=== PATIENT | male | born 1945 | race Caucasian/White ===

== ENCOUNTER 2017-06-12 16:28 | Observation (INO) | payer MEDICARE ==
[~2017-06-12] VITALS: Ht 180.3 cm; Wt 148.9 kg
[~2017-06-12 16:28] MED LIST: ABAT250V; ACCU-CHEK AVIV1 EAC1; ACCU-CHEK AVIV1 EAC2; ACET325; ACET325 PO; ACET500; ALBU90OI INH; ASPI325; ASPI325 PO; ASPI81CH PO; ATOR40TA PO; ATOR80 PO; BRILINTA90 MG PO; CIPR500 PO; CLOP75; CLOP75 PO; COLCRYS PO; CYCL10; CYCL10 PO; DIAZ10 PO; DIAZ5 PO; DOCU100 PO; DULO30 PO; Dilaudid 2 mg Ta2 MG PO; EFFIENT10 MG PO; ENDOCET; ENDOCET PO; FURO20; FURO20 PO; GLIP5ER PO; HYDACE10B PO; HYDACE5325 PO; HYDCHL25 PO; HYDMOR2 PO; HYDMOR4 PO; IBUP200; INDOCIN; ISOD40ER PO; Isosorbide Mono30 MG PO; Isosorbide Mono60 MG PO; KETO10 PO; LEVFLO500 PO; LISI20; LISI20 PO; LISINOPRIL; LOSARTAN POTAS100 MG PO; LOSHYD100 PO; LOVA40; METF500 PO; METF500C PO; METO100 PO; METO100ER PO; METO50; METO50 PO; METO50ER; METO50ER PO; METR500 PO; Metoprolol Tar100 MG; Metoprolol Tar100 MG PO; NEBI10 PO; NITR.4SL SL; NITR.4TPA TOP; NITRSPRAY; NITRSPRAY SL; ONDA4 PO; OXYACE5T; OXYACE5T PO; OXYC1TAB11 PO; PERCOCET 10/325 PO; POLY17UD PO; PRED10; PRED5 PO; PROM25 PO; Prednisone20 MG PO; RANO500T PO; RXCYCL10 PO; RXHYDMOR2 PO; SIMV10 PO; SIMVASTATIN PO; SULTRISS; TAMS.4ER PO; VYTORIN; [UNRECOGNIZED DRUG - OTHER]
[2017-06-12 17:13] LABS: BASOPHILS ABSOLUTE AUTO 0.06 K/mm3 (0.00-0.23); BASOPHILS PERCENT AUTO 0 % (0-2); EOSINOPHILS PERCENT AUTO 1 % (0-6); Hematocrit 39.4 % (37.0-53.0); Hemoglobin 12.7 g/dL (13.5-17.5); IMMATURE GRAN ABSOLUTE AUTO 0.19 K/mm3 (0.00-0.10); IMMATURE GRAN PERCENT AUTO 1 % (0-1); LYMPHOCYTES ABSOLUTE AUTO 2.35 K/mm3 (0.84-5.20); LYMPHOCYTES PERCENT AUTO 16 % (21-46); MONOCYTES ABSOLUTE AUTO 0.84 K/mm3 (0.16-1.47); MONOCYTES PERCENT AUTO 6 % (4-13); Mean Corpuscular HGB 29.5 pg (26.0-34.0); Mean Corpuscular HGB Conc 32.2 g/dL (31.5-36.5); Mean Corpuscular Volume 92 fL (80-100); Mean Platelet Volume 9.8 fL (9.1-12.4); NEUTROPHILS ABSOLUTE AUTO 11.44 K/mm3 (1.96-9.15); NEUTROPHILS PERCENT AUTO 76 % (41-73); Platelet Count 358 K/mm3 (150-400); RDW Coefficient Variation 14.2 % (11.7-14.2); RDW Standard Deviation 48.3 fL (35.1-46.3); White Blood Cell Count 14.98 K/mm3 (4.00-11.30)
[2017-06-12 17:34] LABS: Alanine Aminotransfer (ALT/SGP 23 U/L (12-78); Albumin, Blood 2.9 g/dL (3.4-5.0); Albumin/Globulin Ratio 0.8 (0.8-1.8); Alk Phos 94 U/L (50-136); Anion Gap 12 mmol/L (6-16); Aspartate Aminotrans (AST/SGOT 18 U/L (12-37); Bilirubin, Total 0.3 mg/dL (0.1-1.0); Blood Urea Nitrogen 23 mg/dL (8-24); Bun/Creatinine Ratio 18.7 (12.0-20.0); CO2, Blood 22 mmol/L (21-32); Calcium, Blood 8.6 mg/dL (8.5-10.1); Chloride, Blood 99 mmol/L (98-108); Creatinine, Blood 1.23 mg/dL (0.60-1.20); Globulin, Blood 3.7 g/dL (2.2-4.0); Glomerular Filtration Rate >60 (60-); Glucose, Blood 453 mg/dL (70-99); Potassium, Blood 4.3 mmol/L (3.5-5.5); Sodium, Blood 133 mmol/L (136-145); Total Protein, Blood 6.6 g/dL (6.4-8.2); Troponin I <0.015 ng/mL (0.000-0.040)
[2017-06-13 00:45] LABS: Source, Urine Voided
[2017-06-13 00:53] LABS: Bilirubin, Urine Neg (Neg); Blood, Urine Neg (Neg); Glucose Qualitative, Urine 4+ (Neg); Ketones, Urine Neg (Neg); Leukocyte Esterase, Urine Neg (Neg); Nitrite, Urine Neg (Neg); Protein, Urine Neg (Neg); Urobilinogen, Urine NORM (Normal)
[2017-06-13 00:56] LABS: Appearance, Urine Clear (Clear); Color, Urine Yellow (P-Yellow)
[2017-06-15] MEDS ORDERED: TRAM50 PO (14:37)
[2017-06-15] MEDS ORDERED: ATOR80 PO (14:39)
[2017-06-15] MEDS ORDERED: NITR.6SL SL (14:39)
[2017-06-15] MEDS ORDERED: CARV25 PO (14:41)
[2017-06-15] MEDS ORDERED: HYDCHL25 PO (14:42)
[2017-06-15] MEDS ORDERED: LIDO700A20 TOP (14:43)
[2017-06-15] MEDS ORDERED: PANT40 PO (14:46)
[2017-06-15] MEDS ORDERED: TORSE20 PO (14:47)
[2017-06-15] MEDS ORDERED: LOSA50 PO (15:09)
[2017-07-23] MEDS ORDERED: Isosorbide Mono60 MG PO (15:07)
[2017-07-23] MEDS ORDERED: SITA50T2 PO (15:07)
[2017-07-23] MEDS ORDERED: NITR.8TP TOP (15:07)
[2017-12-06] MEDS ORDERED: Percocet 10-321 EACH PO (08:49)
== END 2017-06-15 16:13 | disposition home or self-care (01) ==
LOC: ER 16:28 → MEDS 16:29 → ENPENDDIS 06-15 12:22 → MEDS 06-15 16:13
PROVIDERS: Emergency Medicine; Internal Medicine
DX: R07.89 Other chest pain (principal); I25.10 Atherosclerotic heart disease of native coronary artery without angina pectoris; G47.33 Obstructive sleep apnea (adult) (pediatric); E78.5 Hyperlipidemia, unspecified; E11.22 Type 2 diabetes mellitus with diabetic chronic kidney disease; I13.10 Hypertensive heart and chronic kidney disease without heart failure, with stage 1 through stage 4 chronic kidney disease, or unspecified chronic kidney disease; N18.3 Chronic kidney disease, stage 3 (moderate); M19.90 Unspecified osteoarthritis, unspecified site; E66.01 Morbid (severe) obesity due to excess calories; M25.571 Pain in right ankle and joints of right foot; M54.9 Dorsalgia, unspecified; M25.551 Pain in right hip; I25.9 Chronic ischemic heart disease, unspecified; Z88.8 Allergy status to other drugs, medicaments and biological substances; Z95.1 Presence of aortocoronary bypass graft; Z99.89 Dependence on other enabling machines and devices; Z85.46 Personal history of malignant neoplasm of prostate; Z88.5 Allergy status to narcotic agent; Z88.7 Allergy status to serum and vaccine; Z91.041 Radiographic dye allergy status; Z88.6 Allergy status to analgesic agent; Z79.899 Other long term (current) drug therapy; Z79.84 Long term (current) use of oral hypoglycemic drugs; Z79.02 Long term (current) use of antithrombotics/antiplatelets; Z79.82 Long term (current) use of aspirin; Z87.442 Personal history of urinary calculi; Z98.890 Other specified postprocedural states; Z87.891 Personal history of nicotine dependence; Z85.51 Personal history of malignant neoplasm of bladder; Z95.5 Presence of coronary angioplasty implant and graft; Z79.01 Long term (current) use of anticoagulants; Z68.42 Body mass index [BMI] 45.0-49.9, adult
CPT/HCPCS: 36415; 71046; 78452; 80053; 81003; 82947; 83880; 84484; 85025; 85730; 93005; 93010; 93017; 94762; 96372; 96374; 96375; 96376; 99285; A9500; G0378; J0280; J0360; J1170; J1650; J2785; J3010

== ENCOUNTER 2017-08-05 02:47 | Observation (INO) | payer MEDICARE ==
[~2017-08-05] VITALS: Ht 180.3 cm; Wt 149.4 kg
[~2017-08-05 02:47] MED LIST changes: +CARV25 PO; +LIDO700A20 TOP; +LOSA50 PO; +NITR.6SL SL; +NITR.8TP TOP; +PANT40 PO; +SITA50T2 PO; +TORSE20 PO; +TRAM50 PO
[2017-08-05 03:10] LABS: BASOPHILS ABSOLUTE AUTO 0.08 K/mm3 (0.00-0.23); BASOPHILS PERCENT AUTO 1 % (0-2); EOSINOPHILS ABSOLUTE AUTO 1.27 K/mm3 (0.00-0.68); EOSINOPHILS PERCENT AUTO 10 % (0-6); Hematocrit 37.5 % (37.0-53.0); Hemoglobin 12.3 g/dL (13.5-17.5); IMMATURE GRAN ABSOLUTE AUTO 0.08 K/mm3 (0.00-0.10); IMMATURE GRAN PERCENT AUTO 1 % (0-1); LYMPHOCYTES ABSOLUTE AUTO 2.37 K/mm3 (0.84-5.20); LYMPHOCYTES PERCENT AUTO 19 % (21-46); MONOCYTES ABSOLUTE AUTO 0.91 K/mm3 (0.16-1.47); MONOCYTES PERCENT AUTO 7 % (4-13); Mean Corpuscular HGB 29.9 pg (26.0-34.0); Mean Corpuscular HGB Conc 32.8 g/dL (31.5-36.5); Mean Corpuscular Volume 91 fL (80-100); Mean Platelet Volume 9.4 fL (9.1-12.4); NEUTROPHILS ABSOLUTE AUTO 8.05 K/mm3 (1.96-9.15); NEUTROPHILS PERCENT AUTO 63 % (41-73); Platelet Count 330 K/mm3 (150-400); RDW Coefficient Variation 13.5 % (11.7-14.2); RDW Standard Deviation 45.1 fL (35.1-46.3); Red Blood Cell Count 4.11 M/mm3 (4.30-5.90); White Blood Cell Count 12.76 K/mm3 (4.00-11.30)
[2017-08-05 03:29] LABS: Alanine Aminotransfer (ALT/SGP 15 U/L (12-78); Albumin/Globulin Ratio 0.9 (0.8-1.8); Alk Phos 86 U/L (50-136); Anion Gap 7 mmol/L (6-16); Aspartate Aminotrans (AST/SGOT 13 U/L (12-37); Bilirubin, Total 0.3 mg/dL (0.1-1.0); Blood Urea Nitrogen 15 mg/dL (8-24); Bun/Creatinine Ratio 10.2 (12.0-20.0); CO2, Blood 27 mmol/L (21-32); Calcium, Blood 8.4 mg/dL (8.5-10.1); Chloride, Blood 105 mmol/L (98-108); Creatinine, Blood 1.47 mg/dL (0.60-1.20); Globulin, Blood 3.5 g/dL (2.2-4.0); Glomerular Filtration Rate 50 (60-); Glucose, Blood 158 mg/dL (70-99); Potassium, Blood 3.9 mmol/L (3.5-5.5); Sodium, Blood 139 mmol/L (136-145); Total Protein, Blood 6.5 g/dL (6.4-8.2); Troponin I <0.015 ng/mL (0.000-0.040)
[2017-08-05] MEDS ORDERED: LOSA50 PO (03:38)
[2017-08-05 15:26] LABS: International Normalized Ratio 1.09; Prothrombin Time Results 11.4 Sec (9.7-11.5)
== END 2017-08-06 15:55 | disposition home or self-care (01) ==
LOC: ER 02:47 → MEDS 04:06 → ICUW 05:10 → PCU 08-06 06:30 → ICUW 08-06 09:20
PROVIDERS: Emergency Medicine; Internal Medicine Cardiovascular Disease
DX: I25.110 Atherosclerotic heart disease of native coronary artery with unstable angina pectoris (principal); E11.22 Type 2 diabetes mellitus with diabetic chronic kidney disease; I12.9 Hypertensive chronic kidney disease with stage 1 through stage 4 chronic kidney disease, or unspecified chronic kidney disease; N18.3 Chronic kidney disease, stage 3 (moderate); M54.5 Low back pain; G89.29 Other chronic pain; I25.2 Old myocardial infarction; E78.5 Hyperlipidemia, unspecified; E66.01 Morbid (severe) obesity due to excess calories; Z68.42 Body mass index [BMI] 45.0-49.9, adult; Z95.5 Presence of coronary angioplasty implant and graft; Z87.891 Personal history of nicotine dependence; Z79.82 Long term (current) use of aspirin; Z79.02 Long term (current) use of antithrombotics/antiplatelets; Z79.899 Other long term (current) drug therapy; Z88.5 Allergy status to narcotic agent; Z88.6 Allergy status to analgesic agent; Z88.8 Allergy status to other drugs, medicaments and biological substances; Z91.041 Radiographic dye allergy status
CPT/HCPCS: 36415; 71046; 80053; 82947; 84484; 85025; 85347; 85610; 85730; 86850; 86900; 86901; 93005; 93010; 93455; 96374; 96375; 96376; 99152; 99153; 99285; C1769; C1894; G0378; J0360; J1200; J1644; J1720; J2250; J3010; J3490; J7030; Q9967

== ENCOUNTER 2017-11-03 13:45 | Observation (INO) | payer MEDICARE ==
[~2017-11-03] VITALS: Ht 180.3 cm; Wt 149.6 kg
[2017-11-03 14:12] LABS: BASOPHILS PERCENT AUTO 1 % (0-2); EOSINOPHILS ABSOLUTE AUTO 0.87 K/mm3 (0.00-0.68); EOSINOPHILS PERCENT AUTO 7 % (0-6); Hemoglobin 13.2 g/dL (13.5-17.5); IMMATURE GRAN ABSOLUTE AUTO 0.05 K/mm3 (0.00-0.10); IMMATURE GRAN PERCENT AUTO 0 % (0-1); LYMPHOCYTES ABSOLUTE AUTO 2.33 K/mm3 (0.84-5.20); LYMPHOCYTES PERCENT AUTO 19 % (21-46); MONOCYTES ABSOLUTE AUTO 0.78 K/mm3 (0.16-1.47); MONOCYTES PERCENT AUTO 6 % (4-13); Mean Corpuscular HGB 27.5 pg (26.0-34.0); Mean Corpuscular HGB Conc 31.4 g/dL (31.5-36.5); Mean Corpuscular Volume 88 fL (80-100); Mean Platelet Volume 9.6 fL (9.1-12.4); NEUTROPHILS ABSOLUTE AUTO 8.46 K/mm3 (1.96-9.15); NEUTROPHILS PERCENT AUTO 67 % (41-73); Platelet Count 361 K/mm3 (150-400); RDW Coefficient Variation 13.4 % (11.7-14.2); RDW Standard Deviation 43.5 fL (35.1-46.3); White Blood Cell Count 12.59 K/mm3 (4.00-11.30)
[2017-11-03] MEDS ORDERED: FURO20 PO (14:33)
[2017-11-03] MEDS ORDERED: POTCHL10ER PO (14:33)
[2017-11-03] MEDS ORDERED: NITR.8TP (14:34)
[2017-11-03 14:41] LABS: Alanine Aminotransfer (ALT/SGP 18 U/L (12-78); Albumin/Globulin Ratio 0.8 (0.8-1.8); Alk Phos 114 U/L (50-136); Anion Gap 8 mmol/L (6-16); Aspartate Aminotrans (AST/SGOT 16 U/L (12-37); Bilirubin, Total 0.3 mg/dL (0.1-1.0); Blood Urea Nitrogen 14 mg/dL (8-24); Bun/Creatinine Ratio 9.4 (12.0-20.0); CO2, Blood 25 mmol/L (21-32); Chloride, Blood 100 mmol/L (98-108); Creatinine, Blood 1.49 mg/dL (0.60-1.20); Globulin, Blood 3.8 g/dL (2.2-4.0); Glomerular Filtration Rate 49 (60-); Glucose, Blood 447 mg/dL (70-99); Potassium, Blood 3.8 mmol/L (3.5-5.5); Sodium, Blood 133 mmol/L (136-145); Total Protein, Blood 6.8 g/dL (6.4-8.2); Troponin I <0.015 ng/mL (0.000-0.040)
[2017-11-03] MEDS ORDERED: ZYRTEC10 M1 PO (14:44)
[2017-11-03] MEDS ORDERED: Monodox100 MG PO (14:44)
[2017-11-03] MEDS ORDERED: Mupirocin22 GM TOP (14:44)
== END 2017-11-04 03:00 | disposition left against medical advice (07) ==
LOC: ER 13:45 → MEDS 13:48 → ER 15:47 → MEDS 15:47
PROVIDERS: Emergency Medicine
DX: R07.9 Chest pain, unspecified (principal); I25.10 Atherosclerotic heart disease of native coronary artery without angina pectoris; E78.5 Hyperlipidemia, unspecified; E11.22 Type 2 diabetes mellitus with diabetic chronic kidney disease; I12.9 Hypertensive chronic kidney disease with stage 1 through stage 4 chronic kidney disease, or unspecified chronic kidney disease; N18.3 Chronic kidney disease, stage 3 (moderate); E66.01 Morbid (severe) obesity due to excess calories; G47.33 Obstructive sleep apnea (adult) (pediatric); Z87.891 Personal history of nicotine dependence; Z95.1 Presence of aortocoronary bypass graft; Z95.5 Presence of coronary angioplasty implant and graft; Z88.5 Allergy status to narcotic agent; Z88.8 Allergy status to other drugs, medicaments and biological substances; Z88.7 Allergy status to serum and vaccine; Z91.041 Radiographic dye allergy status; Z79.02 Long term (current) use of antithrombotics/antiplatelets; Z79.84 Long term (current) use of oral hypoglycemic drugs; Z79.82 Long term (current) use of aspirin; Z79.899 Other long term (current) drug therapy; Z99.89 Dependence on other enabling machines and devices; Z79.01 Long term (current) use of anticoagulants
CPT/HCPCS: 36415; 71046; 80053; 82947; 84484; 85025; 93005; 93010; 96360; 99285-25; G0378; J1815; J7030; Q0163

== ENCOUNTER 2018-04-21 11:33 | Emergency (ER) | payer MEDICARE ==
[~2018-04-21] VITALS: Ht 180.3 cm; Wt 142.4 kg
[~2018-04-21 11:33] MED LIST changes: +Monodox100 MG PO; +Mupirocin22 GM TOP; +NITR.8TP; +POTCHL10ER PO; +Percocet 10-321 EACH PO; +ZYRTEC10 M1 PO
[2018-04-21] MEDS ORDERED: Metformin HCl500 MG PO (11:55)
[2018-04-21] MEDS ORDERED: AMLO10 PO (11:55)
[2018-04-21 13:10] LABS: Calcium, Ionized (POC) 1.05 mmol/L (1.10-1.46); Chloride (POC) 99 mmol/L (98-108); Creatinine (POC) 1.1 mg/dL (0.8-1.3); Glucose (ISTAT POC) 188 mg/dL (70-99); Hemoglobin (POC) 13.9 g/dL (13.5-17.5); Potassium (POC) 3.6 mmol/L (3.5-5.5); Sodium (POC) 141 mmol/L (135-148); Total CO2 (POC) 28 mmol/L (21-32)
== END 2018-04-21 14:50 | disposition home or self-care (01) ==
LOC: ER 11:33
PROVIDERS: Physician Assistant
DX: S09.90XA Unspecified injury of head, initial encounter (principal); S20.212A Contusion of left front wall of thorax, initial encounter; S90.32XA Contusion of left foot, initial encounter; I25.10 Atherosclerotic heart disease of native coronary artery without angina pectoris; E11.9 Type 2 diabetes mellitus without complications; I10 Essential (primary) hypertension; E78.5 Hyperlipidemia, unspecified; I25.2 Old myocardial infarction; Z87.442 Personal history of urinary calculi; F17.210 Nicotine dependence, cigarettes, uncomplicated; Z88.5 Allergy status to narcotic agent; Z88.6 Allergy status to analgesic agent; Z88.7 Allergy status to serum and vaccine; Z88.8 Allergy status to other drugs, medicaments and biological substances; Z91.048 Other nonmedicinal substance allergy status; Z79.84 Long term (current) use of oral hypoglycemic drugs; Z79.899 Other long term (current) drug therapy; Z79.82 Long term (current) use of aspirin; W11.XXXA Fall on and from ladder, initial encounter
CPT/HCPCS: 29515; 36415; 70450; 71100; 71250; 73562-RT; 73590; 73630; 74176; 80047; 85014; 93005; 93010; 96374; 99284-25; J1170

== ENCOUNTER 2018-06-03 00:06 | Emergency (ER) | payer MEDICARE ==
[~2018-06-03] VITALS: Ht 177.8 cm; Wt 142.4 kg
[~2018-06-03 00:06] MED LIST changes: +AMLO10 PO; +Metformin HCl500 MG PO
[2018-06-03 00:40] LABS: BASOPHILS ABSOLUTE AUTO 0.08 K/mm3 (0.00-0.23); BASOPHILS PERCENT AUTO 1 % (0-2); EOSINOPHILS ABSOLUTE AUTO 1.27 K/mm3 (0.00-0.68); EOSINOPHILS PERCENT AUTO 11 % (0-6); Hematocrit 43.6 % (37.0-53.0); IMMATURE GRAN ABSOLUTE AUTO 0.08 K/mm3 (0.00-0.10); IMMATURE GRAN PERCENT AUTO 1 % (0-1); LYMPHOCYTES PERCENT AUTO 20 % (21-46); MONOCYTES ABSOLUTE AUTO 0.77 K/mm3 (0.16-1.47); MONOCYTES PERCENT AUTO 7 % (4-13); Mean Corpuscular HGB 29.1 pg (26.0-34.0); Mean Corpuscular HGB Conc 32.1 g/dL (31.5-36.5); Mean Corpuscular Volume 91 fL (80-100); Mean Platelet Volume 9.2 fL (9.1-12.4); NEUTROPHILS ABSOLUTE AUTO 7.21 K/mm3 (1.96-9.15); NEUTROPHILS PERCENT AUTO 61 % (41-73); Platelet Count 383 K/mm3 (150-400); RDW Coefficient Variation 14.3 % (11.7-14.2); RDW Standard Deviation 47.9 fL (35.1-46.3); Red Blood Cell Count 4.81 M/mm3 (4.30-5.90); White Blood Cell Count 11.81 K/mm3 (4.00-11.30)
[2018-06-03] MEDS ORDERED: INSDET100 (00:41)
[2018-06-03 00:57] LABS: Alanine Aminotransfer (ALT/SGP 14 U/L (12-78); Albumin, Blood 3.2 g/dL (3.4-5.0); Albumin/Globulin Ratio 0.8 (0.8-1.8); Alk Phos 134 U/L (50-136); Anion Gap 8 mmol/L (6-16); Aspartate Aminotrans (AST/SGOT 8 U/L (12-37); Bilirubin, Total 0.3 mg/dL (0.1-1.0); Blood Urea Nitrogen 14 mg/dL (8-24); Bun/Creatinine Ratio 12.3 (12.0-20.0); CO2, Blood 27 mmol/L (21-32); Calcium, Blood 8.4 mg/dL (8.5-10.1); Chloride, Blood 102 mmol/L (98-108); Creatinine, Blood 1.14 mg/dL (0.60-1.20); Globulin, Blood 3.9 g/dL (2.2-4.0); Glomerular Filtration Rate >60 (60-); Glucose, Blood 291 mg/dL (70-99); Potassium, Blood 3.9 mmol/L (3.5-5.5); Sodium, Blood 137 mmol/L (136-145); Total Protein, Blood 7.1 g/dL (6.4-8.2); Troponin I <0.015 ng/mL (0.000-0.040)
== END 2018-06-03 01:36 | disposition home or self-care (01) ==
LOC: ER 00:06
PROVIDERS: Emergency Medicine
DX: R07.9 Chest pain, unspecified (principal); Z88.5 Allergy status to narcotic agent; Z88.8 Allergy status to other drugs, medicaments and biological substances; Z88.7 Allergy status to serum and vaccine; Z79.899 Other long term (current) drug therapy; Z79.4 Long term (current) use of insulin; Z79.82 Long term (current) use of aspirin; E11.9 Type 2 diabetes mellitus without complications; F17.210 Nicotine dependence, cigarettes, uncomplicated
CPT/HCPCS: 36415; 71046; 80053; 84484; 85025; 93005; 93010; 99285-25

== ENCOUNTER 2019-03-02 15:41 | Observation (INO) | payer MEDICARE ==
[~2019-03-02] VITALS: Ht 180.3 cm; Wt 142.5 kg
[~2019-03-02 15:41] MED LIST changes: -ASPI81CH PO; +Aspirin EC81 MG PO; +INSDET100 SC
[2019-03-02 16:11] LABS: BASOPHILS PERCENT AUTO 1 % (0-2); EOSINOPHILS ABSOLUTE AUTO 0.88 K/mm3 (0.00-0.68); EOSINOPHILS PERCENT AUTO 7 % (0-6); Hemoglobin 14.1 g/dL (13.5-17.5); IMMATURE GRAN ABSOLUTE AUTO 0.05 K/mm3 (0.00-0.10); IMMATURE GRAN PERCENT AUTO 0 % (0-1); LYMPHOCYTES ABSOLUTE AUTO 2.42 K/mm3 (0.84-5.20); LYMPHOCYTES PERCENT AUTO 19 % (21-46); MONOCYTES ABSOLUTE AUTO 0.92 K/mm3 (0.16-1.47); MONOCYTES PERCENT AUTO 7 % (4-13); Mean Corpuscular HGB 29.4 pg (26.0-34.0); Mean Corpuscular Volume 92 fL (80-100); Mean Platelet Volume 9.4 fL (9.1-12.4); NEUTROPHILS ABSOLUTE AUTO 8.17 K/mm3 (1.96-9.15); NEUTROPHILS PERCENT AUTO 65 % (41-73); Platelet Count 369 K/mm3 (150-400); RDW Coefficient Variation 14.3 % (11.7-14.2); RDW Standard Deviation 48.1 fL (35.1-46.3); White Blood Cell Count 12.54 K/mm3 (4.00-11.30)
[2019-03-02 16:34] LABS: Alanine Aminotransfer (ALT/SGP 14 U/L (12-78); Albumin/Globulin Ratio 0.8 (0.8-1.8); Alk Phos 99 U/L (50-136); Anion Gap 6 mmol/L (6-16); Aspartate Aminotrans (AST/SGOT 12 U/L (12-37); Bilirubin, Total 0.4 mg/dL (0.1-1.0); Blood Urea Nitrogen 14 mg/dL (8-24); Bun/Creatinine Ratio 10.9 (12.0-20.0); CO2, Blood 27 mmol/L (21-32); Calcium, Blood 8.3 mg/dL (8.5-10.1); Chloride, Blood 105 mmol/L (98-108); Creatinine, Blood 1.29 mg/dL (0.60-1.20); Globulin, Blood 3.8 g/dL (2.2-4.0); Glomerular Filtration Rate 58 (60-); Glucose, Blood 223 mg/dL (70-99); Sodium, Blood 138 mmol/L (136-145); Total Protein, Blood 6.8 g/dL (6.4-8.2); Troponin I <0.015 ng/mL (0.000-0.040)
--- NOTE | 2019-03-02 21:44 | NUR ---
PCU ADMIT PT BROUGHT TO PCU RM 04 BY WHEELCHAIR FROM ER @ 1999. PT A&O X4. PT ABLE TO STAND AND AMBULATE TO PCU BED W/ CANE FROM HOME AND SBA. PT DENIES CP, REPORTING LAST HAVING CP "AN HOUR AGO" BEFORE ADMIT. PT DESCRIBES CP A DULL ACHE IN L CHEST AND L SHOULDER THAT INTERMITTENTLY "HAS A STABBING PAIN LIKE NO OTHER, BUT IT GOES AWAY, AND THEN IT'S JUST A DULL PAIN AGAIN. BUT RIGHT NOW I HAVE NONE." MONITOR SHOWS SR W/ 1 DEGREE BLOCK & PAC's, HR 60's-70's. LUNG SOUNDS CLEAR. SPO2 > 92% ON RA. PT W/ HOME CPAP, SET UP BY RT. PT REPORTS FALLS AT HOME. ABRASIONS/SCABS NOTED TO BLE THAT PT REPORTS RESULT OF FALL OFF LADDER. +1 EDEMA TO BLE. WILL CONTINUE TO MONITOR AND PROVIDE CARE.
--- NOTE | 2019-03-03 01:19 | NUR ---
PT LEFT W/OUT NOTIFICATION AT APPROX 2345, PT C/O ROOM BEING TOO COLD. THIS NURSE SAW WALL THERMOSTAT ALREADY SET TO MAX TEMP FOR ROOM, BUT ROOM NOTED FEELING COLD. PT STATEMENT OF: "IF THIS ROOM CAN'T GET WARM, I'M GOING TO CALL MY TO COME GET ME SO I CAN GO HOME." BLANKET FROM WARMER OFFERED TO PT WHILE AWAITING TEMPERATURE TO INCREASE IN ROOM. AT APPROX 0000, THIS RN NOTIFIED OF PT HAVING COME OFF OF TELE AND NOT BEING PRESENT IN ROOM. PT & PT'S BELONGINGS NOTED TO BE ABSENT FROM ROOM. TELEMETRY FOUND ON PT'S BED. CHARGE NURSE AND NURSING ARTS EDUCATION TEACHER NOTIFIED OF PT'S ABSENCE. CHARGE NURSE MADE CALL TO PT @ APPROX 0100 W/ PT ANSWER CONFIRMING PT'S RETURN HOME AFTER PICKUP FROM HOSPITAL BY PT'S SPOUSE. PT REPORT TO AIR HAMMER OPERATOR THAT PT WILL BE BACK IN MORNING FOR APPOINTMENT W/ MD MURILLO.
== END 2019-03-03 01:10 | disposition left against medical advice (07) ==
LOC: ER 15:41 → PCU 15:42
PROVIDERS: Emergency Medicine; ADMIT Internal Medicine
DX: R07.9 Chest pain, unspecified (principal); I25.10 Atherosclerotic heart disease of native coronary artery without angina pectoris; I48.0 Paroxysmal atrial fibrillation; E78.5 Hyperlipidemia, unspecified; I12.9 Hypertensive chronic kidney disease with stage 1 through stage 4 chronic kidney disease, or unspecified chronic kidney disease; E11.22 Type 2 diabetes mellitus with diabetic chronic kidney disease; N18.3 Chronic kidney disease, stage 3 (moderate); G47.33 Obstructive sleep apnea (adult) (pediatric); M19.90 Unspecified osteoarthritis, unspecified site; G89.29 Other chronic pain; M54.9 Dorsalgia, unspecified; I25.2 Old myocardial infarction; F17.210 Nicotine dependence, cigarettes, uncomplicated; E66.01 Morbid (severe) obesity due to excess calories; Z68.41 Body mass index [BMI] 40.0-44.9, adult; Z87.442 Personal history of urinary calculi; Z85.46 Personal history of malignant neoplasm of prostate; Z85.51 Personal history of malignant neoplasm of bladder; Z95.1 Presence of aortocoronary bypass graft; Z95.5 Presence of coronary angioplasty implant and graft; Z88.5 Allergy status to narcotic agent; Z88.6 Allergy status to analgesic agent; Z88.7 Allergy status to serum and vaccine; Z88.8 Allergy status to other drugs, medicaments and biological substances; Z91.041 Radiographic dye allergy status; Z79.82 Long term (current) use of aspirin; Z79.02 Long term (current) use of antithrombotics/antiplatelets; Z79.4 Long term (current) use of insulin; Z79.899 Other long term (current) drug therapy; Z99.89 Dependence on other enabling machines and devices; Z53.29 Procedure and treatment not carried out because of patient's decision for other reasons
CPT/HCPCS: 36415; 71046; 80053; 83880; 84484; 85025; 93005; 93010; 96372; 96374; 99285-25; G0378; J1650

== ENCOUNTER 2019-07-25 19:01 | Observation (INO) | payer MEDICARE ==
[~2019-07-25] VITALS: Ht 180.3 cm; Wt 141.3 kg
[2019-07-25] MEDS ORDERED: WARF5 PO (19:35)
[2019-07-25 19:44] LABS: BASOPHILS PERCENT AUTO 1 % (0-2); EOSINOPHILS ABSOLUTE AUTO 0.81 K/mm3 (0.00-0.68); EOSINOPHILS PERCENT AUTO 5 % (0-6); Hematocrit 42.9 % (37.0-53.0); Hemoglobin 13.7 g/dL (13.5-17.5); IMMATURE GRAN ABSOLUTE AUTO 0.08 K/mm3 (0.00-0.10); IMMATURE GRAN PERCENT AUTO 1 % (0-1); LYMPHOCYTES ABSOLUTE AUTO 2.91 K/mm3 (0.84-5.20); LYMPHOCYTES PERCENT AUTO 19 % (21-46); MONOCYTES ABSOLUTE AUTO 1.14 K/mm3 (0.16-1.47); MONOCYTES PERCENT AUTO 8 % (4-13); Mean Corpuscular HGB 28.7 pg (26.0-34.0); Mean Corpuscular HGB Conc 31.9 g/dL (31.5-36.5); Mean Corpuscular Volume 90 fL (80-100); Mean Platelet Volume 9.4 fL (9.1-12.4); NEUTROPHILS ABSOLUTE AUTO 9.98 K/mm3 (1.96-9.15); NEUTROPHILS PERCENT AUTO 66 % (41-73); Platelet Count 388 K/mm3 (150-400); RDW Coefficient Variation 14.6 % (11.7-14.2); RDW Standard Deviation 48.2 fL (35.1-46.3); Red Blood Cell Count 4.78 M/mm3 (4.30-5.90); White Blood Cell Count 15.02 K/mm3 (4.00-11.30)
[2019-07-25 19:59] LABS: International Normalized Ratio 1.96; Prothrombin Time Results 20.2 Sec (9.7-11.5)
[2019-07-25 20:00] LABS: Alanine Aminotransfer (ALT/SGP 14 U/L (12-78); Albumin/Globulin Ratio 0.8 (0.8-1.8); Alk Phos 107 U/L (50-136); Anion Gap 5 mmol/L (6-16); Aspartate Aminotrans (AST/SGOT 13 U/L (12-37); Bilirubin, Total 0.3 mg/dL (0.1-1.0); Blood Urea Nitrogen 11 mg/dL (8-24); Bun/Creatinine Ratio 9.9 (12.0-20.0); CO2, Blood 27 mmol/L (21-32); Calcium, Blood 7.9 mg/dL (8.5-10.1); Chloride, Blood 105 mmol/L (98-108); Creatinine, Blood 1.11 mg/dL (0.60-1.20); Glomerular Filtration Rate >60 (60-); Glucose, Blood 168 mg/dL (70-99); Potassium, Blood 3.6 mmol/L (3.5-5.5); Sodium, Blood 137 mmol/L (136-145); Troponin I <0.015 ng/mL (0.000-0.040)
--- NOTE | 2019-07-26 04:53 | NUR ---
SHIFT SUMMARY PT WAS NEW ER ADMIT THIS SHIFT (99) CHOCOLATE FINISHER TRANSPORTED PT TO FLOOR, STATED PT C/O CP THEY WERE GETTING OFF OF ELEVATOR, CP RESOLVED PT REACHED ROOM, PT STATED HE DOES HAVE OCCASIONAL CP @ HOME FOR WHICH HE TAKES NITRO. PT HAD 13 SEC RUN OF VTACH REPORTED BY HAM-IT @ 0230, PT WAS ASYMPTOMATIC AND REMAINED SLEEPING. PT CONTINUES TO REPORT PAIN 07/09, STATES THAT FENT & NITRO DID NOT RESOLVE, REF FENT & TYLENOL, STATED TYLENOL DOSE WAS TOO SMALL TO HELP HIM THAT HE TAKES 1500 MG @ HOME. PT IS SLEEPING AT THIS TIME, NO OTHER C/O ANY KIND, NO CP SINCE ASSUMING CARE, WILL CONT TO MONITOR UNTIL REPORT GIVEN TO DAY RN.
[2019-07-26 04:58] LABS: BASOPHILS ABSOLUTE AUTO 0.09 K/mm3 (0.00-0.23); BASOPHILS PERCENT AUTO 1 % (0-2); EOSINOPHILS ABSOLUTE AUTO 0.69 K/mm3 (0.00-0.68); EOSINOPHILS PERCENT AUTO 6 % (0-6); Hematocrit 42.7 % (37.0-53.0); Hemoglobin 13.7 g/dL (13.5-17.5); IMMATURE GRAN ABSOLUTE AUTO 0.04 K/mm3 (0.00-0.10); IMMATURE GRAN PERCENT AUTO 0 % (0-1); LYMPHOCYTES ABSOLUTE AUTO 2.51 K/mm3 (0.84-5.20); LYMPHOCYTES PERCENT AUTO 20 % (21-46); MONOCYTES ABSOLUTE AUTO 0.99 K/mm3 (0.16-1.47); MONOCYTES PERCENT AUTO 8 % (4-13); Mean Corpuscular HGB 28.7 pg (26.0-34.0); Mean Corpuscular HGB Conc 32.1 g/dL (31.5-36.5); Mean Corpuscular Volume 90 fL (80-100); Mean Platelet Volume 9.5 fL (9.1-12.4); NEUTROPHILS ABSOLUTE AUTO 8.03 K/mm3 (1.96-9.15); NEUTROPHILS PERCENT AUTO 65 % (41-73); Platelet Count 338 K/mm3 (150-400); RDW Coefficient Variation 14.5 % (11.7-14.2); RDW Standard Deviation 47.8 fL (35.1-46.3); Red Blood Cell Count 4.77 M/mm3 (4.30-5.90); White Blood Cell Count 12.35 K/mm3 (4.00-11.30)
[2019-07-26 05:13] LABS: International Normalized Ratio 2.02; Prothrombin Time Results 20.8 Sec (9.7-11.5)
[2019-07-26 05:24] LABS: Alanine Aminotransfer (ALT/SGP 15 U/L (12-78); Albumin/Globulin Ratio 0.8 (0.8-1.8); Alk Phos 104 U/L (50-136); Anion Gap 6 mmol/L (6-16); Aspartate Aminotrans (AST/SGOT 11 U/L (12-37); Bilirubin, Total 0.5 mg/dL (0.1-1.0); Blood Urea Nitrogen 10 mg/dL (8-24); Bun/Creatinine Ratio 9.5 (12.0-20.0); CO2, Blood 28 mmol/L (21-32); Chloride, Blood 105 mmol/L (98-108); Creatinine, Blood 1.05 mg/dL (0.60-1.20); Globulin, Blood 3.8 g/dL (2.2-4.0); Glomerular Filtration Rate >60 (60-); Glucose, Blood 139 mg/dL (70-99); Potassium, Blood 3.3 mmol/L (3.5-5.5); Sodium, Blood 139 mmol/L (136-145); Total Protein, Blood 6.8 g/dL (6.4-8.2)
[2019-07-26 05:27] LABS: Triglycerides 107 mg/dL (30-160); Troponin I <0.015 ng/mL (0.000-0.040)
--- NOTE | 2019-07-26 11:36 | NUR ---
PT DISCHARGED FROM THE UNIT. NO NEW MEDICATIONS. PT TO FOLLOW UP WITH PRIMARY CARE PROVIDER. IV REMOVED. DISCHARGE INSTRUCTIONS REVIEWED NO QUESTIONS AT THIS TIME. PT LEFT UNIT VIA WHEELCHAIR, WILL DRIFT MINER
== END 2019-07-26 11:08 | disposition home or self-care (01) ==
LOC: ER 19:01 → MEDS 19:02 → ENPENDDIS 07-26 10:49 → MEDS 07-26 11:08
PROVIDERS: Emergency Medicine; ADMIT Internal Medicine
DX: K81.0 Acute cholecystitis (principal); E66.01 Morbid (severe) obesity due to excess calories; I25.10 Atherosclerotic heart disease of native coronary artery without angina pectoris; G47.33 Obstructive sleep apnea (adult) (pediatric); E11.22 Type 2 diabetes mellitus with diabetic chronic kidney disease; E11.40 Type 2 diabetes mellitus with diabetic neuropathy, unspecified; N18.3 Chronic kidney disease, stage 3 (moderate); E78.5 Hyperlipidemia, unspecified; I71.4 Abdominal aortic aneurysm, without rupture; I48.0 Paroxysmal atrial fibrillation; I12.9 Hypertensive chronic kidney disease with stage 1 through stage 4 chronic kidney disease, or unspecified chronic kidney disease; M19.90 Unspecified osteoarthritis, unspecified site; G89.29 Other chronic pain; M54.9 Dorsalgia, unspecified; F17.210 Nicotine dependence, cigarettes, uncomplicated; Z66 Do not resuscitate; Z79.01 Long term (current) use of anticoagulants; Z79.4 Long term (current) use of insulin; Z79.899 Other long term (current) drug therapy; Z85.46 Personal history of malignant neoplasm of prostate; Z85.51 Personal history of malignant neoplasm of bladder; Z87.442 Personal history of urinary calculi; Z88.3 Allergy status to other anti-infective agents; Z88.5 Allergy status to narcotic agent; Z88.6 Allergy status to analgesic agent; Z88.7 Allergy status to serum and vaccine; Z91.041 Radiographic dye allergy status; Z95.1 Presence of aortocoronary bypass graft; Z95.5 Presence of coronary angioplasty implant and graft
CPT/HCPCS: 36415; 71046; 74176; 76705; 80053; 82947; 83690; 83880; 84478; 84484; 85025; 85610; 93005; 93010; A9270-GY; J2405; J3010

== ENCOUNTER 2019-12-28 06:02 | Inpatient (IN) | payer MEDICARE ==
[~2019-12-28] VITALS: Ht 182.9 cm; Wt 140.6 kg
[~2019-12-28 06:02] MED LIST changes: +ONDA4ODT MM; +Percocet 5-3251 EACH PO; +WARF5 PO
[2019-12-28 07:01] LABS: BASOPHILS ABSOLUTE AUTO 0.14 K/mm3 (0.00-0.23); BASOPHILS PERCENT AUTO 1 % (0-2); EOSINOPHILS PERCENT AUTO 13 % (0-6); Hematocrit 45.7 % (37.0-53.0); Hemoglobin 14.8 g/dL (13.5-17.5); IMMATURE GRAN ABSOLUTE AUTO 0.11 K/mm3 (0.00-0.10); IMMATURE GRAN PERCENT AUTO 1 % (0-1); LYMPHOCYTES ABSOLUTE AUTO 3.17 K/mm3 (0.84-5.20); LYMPHOCYTES PERCENT AUTO 19 % (21-46); MONOCYTES ABSOLUTE AUTO 1.15 K/mm3 (0.16-1.47); MONOCYTES PERCENT AUTO 7 % (4-13); Mean Corpuscular HGB Conc 32.4 g/dL (31.5-36.5); Mean Corpuscular Volume 90 fL (80-100); Mean Platelet Volume 9.4 fL (9.1-12.4); NEUTROPHILS ABSOLUTE AUTO 10.08 K/mm3 (1.96-9.15); NEUTROPHILS PERCENT AUTO 60 % (41-73); Platelet Count 358 K/mm3 (150-400); RDW Coefficient Variation 14.8 % (11.7-14.2); White Blood Cell Count 16.75 K/mm3 (4.00-11.30)
[2019-12-28 07:18] LABS: Albumin, Blood 3.2 g/dL (3.4-5.0); Albumin/Globulin Ratio 0.8 (0.8-1.8); Bilirubin, Total 0.3 mg/dL (0.1-1.0); C-REACTIVE PROTEIN, EXT RANGE 0.408 mg/dL (0.000-0.300); Calcium, Blood 8.9 mg/dL (8.5-10.1); Creatinine, Blood 1.38 mg/dL (0.60-1.20); Globulin, Blood 3.8 g/dL (2.2-4.0)
[2019-12-28 11:25] LABS: International Normalized Ratio 2.96; Prothrombin Time Results 29.8 Sec (9.7-11.5)
--- NOTE | 2019-12-28 18:05 | NUR ---
PATIENT IS ALERT AND ORIENTED AND COOPERATIVE WITH CARE. COMPLAINS OF PAIN IN HIS LEFT FOOT, TREATED PER EMAR. NO COMPLAINTS OF NAUSEA WHILE ON THIS UNIT. HE IS INDEPENDENT IN HIS ROOM. VITAL SIGNS ARE WNL. WILL CONTINUE TO MONITOR
--- NOTE | 2019-12-29 04:33 | NUR ---
COMMUNICATION ENGINEER SUMMARY PT HAD AN UNEVENTFUL NIGHT RECIEVING MEDICATION FOR SEVERE LEFT FOOT PAIN AND THEN SLEPT FOR THE MAJORITY OF THE SHIFT. PT WORE CPAP ALL NIGHT AND HAD A O2 SAT OF >89 VIA CONTINUOUS PULSE OX. PT IS AXO X4 AND COOPERATIVE W [facility].
[2019-12-29 04:45] LABS: BASOPHILS ABSOLUTE AUTO 0.15 K/mm3 (0.00-0.23); BASOPHILS PERCENT AUTO 1 % (0-2); EOSINOPHILS ABSOLUTE AUTO 1.86 K/mm3 (0.00-0.68); EOSINOPHILS PERCENT AUTO 15 % (0-6); Hematocrit 43.9 % (37.0-53.0); Hemoglobin 14.1 g/dL (13.5-17.5); IMMATURE GRAN ABSOLUTE AUTO 0.05 K/mm3 (0.00-0.10); IMMATURE GRAN PERCENT AUTO 0 % (0-1); LYMPHOCYTES ABSOLUTE AUTO 2.69 K/mm3 (0.84-5.20); LYMPHOCYTES PERCENT AUTO 21 % (21-46); MONOCYTES ABSOLUTE AUTO 0.98 K/mm3 (0.16-1.47); MONOCYTES PERCENT AUTO 8 % (4-13); Mean Corpuscular HGB 29.4 pg (26.0-34.0); Mean Corpuscular HGB Conc 32.1 g/dL (31.5-36.5); Mean Corpuscular Volume 92 fL (80-100); Mean Platelet Volume 9.2 fL (9.1-12.4); NEUTROPHILS ABSOLUTE AUTO 7.02 K/mm3 (1.96-9.15); NEUTROPHILS PERCENT AUTO 55 % (41-73); Platelet Count 300 K/mm3 (150-400); RDW Coefficient Variation 14.8 % (11.7-14.2); White Blood Cell Count 12.75 K/mm3 (4.00-11.30)
[2019-12-29 05:02] LABS: International Normalized Ratio 2.17; Prothrombin Time Results 22.2 Sec (9.7-11.5)
[2019-12-29 05:06] LABS: Bun/Creatinine Ratio 11.7 (12.0-20.0); Calcium, Blood 8.4 mg/dL (8.5-10.1); Creatinine, Blood 1.45 mg/dL (0.60-1.20)
--- NOTE | 2019-12-29 18:24 | NUR ---
SHIFT SUMMARY: NO ACUTE EVENTS THIS SHIFT. C/O LOW BACK AND L FOOT PAIN; MEDICATED PER EMAR WITH GOOD EFFECT. 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 REFUSING SCD'S. GOOD PO INTAKE, DENIES NAUSEA. TOLERATING VANCOMYCIN. PLAN IS POSSIBLE D/C HOME TOMORROW.
--- NOTE | 2019-12-30 03:24 | NUR ---
PT REPORTED ITCHING HAND AND ASKED FOR BENADRYL. TALKED WITH NEYMAR MUSE N.P. AND RECEIVED A ONE TIME DOSE FOR 25 MG. I INFORMED THE PT OF THE ORDER, HE SAID THAT IT WAS NOT ENOUGH, THAT HE WANTED 75 MG. HE THEN REFUSED THE MEDICATION IN AN ANGRY MANOR. A SHORT WHILE LATER FERNANDO REED R.N. TOLD ME THE PT HAD WALKED TO THE ELEVATOR WITH THE INTENTION OF HAVING HIS PICK HIM UP AT THE [place] ENTRANCE. PT DID NOT RETURN AND WAS SUBSEQUENTLY DISCHARGED AMA.
== END 2019-12-29 11:50 | disposition left against medical advice (07) | DRG 603 ==
LOC: ER 06:02 → MEDS 10:36
PROVIDERS: Emergency Medicine; Pharmacist; ADMIT Internal Medicine
DX: L03.116 Cellulitis of left lower limb (principal); Z68.41 Body mass index [BMI] 40.0-44.9, adult; I48.0 Paroxysmal atrial fibrillation; N18.3 Chronic kidney disease, stage 3 (moderate); E11.22 Type 2 diabetes mellitus with diabetic chronic kidney disease; I12.9 Hypertensive chronic kidney disease with stage 1 through stage 4 chronic kidney disease, or unspecified chronic kidney disease; E78.5 Hyperlipidemia, unspecified; G47.33 Obstructive sleep apnea (adult) (pediatric); E66.01 Morbid (severe) obesity due to excess calories; I25.10 Atherosclerotic heart disease of native coronary artery without angina pectoris; F17.210 Nicotine dependence, cigarettes, uncomplicated; I25.2 Old myocardial infarction; Z95.1 Presence of aortocoronary bypass graft; Z95.5 Presence of coronary angioplasty implant and graft; Z85.46 Personal history of malignant neoplasm of prostate; Z85.51 Personal history of malignant neoplasm of bladder; Z87.891 Personal history of nicotine dependence; Z79.84 Long term (current) use of oral hypoglycemic drugs; Z79.4 Long term (current) use of insulin; Z79.02 Long term (current) use of antithrombotics/antiplatelets
CPT/HCPCS: 36415; 73630; 80048; 80053; 82947; 85025; 85610; 85651; 86140; 93922; 94762; 96365; 96366; 96375; 96376; 99285-25; A9270-GY; J1200; J2405; J3010; J3370; J7050

== ENCOUNTER 2020-01-02 11:14 | Emergency (ER) | payer MEDICARE ==
[~2020-01-02] VITALS: Ht 182.9 cm; Wt 140.6 kg
[2020-01-02 12:02] LABS: Source, Urine Clean Catch
[2020-01-02 12:07] LABS: BASOPHILS ABSOLUTE AUTO 0.14 K/mm3 (0.00-0.23); BASOPHILS PERCENT AUTO 1 % (0-2); EOSINOPHILS ABSOLUTE AUTO 2.19 K/mm3 (0.00-0.68); EOSINOPHILS PERCENT AUTO 17 % (0-6); Hematocrit 45.4 % (37.0-53.0); Hemoglobin 14.8 g/dL (13.5-17.5); IMMATURE GRAN ABSOLUTE AUTO 0.06 K/mm3 (0.00-0.10); IMMATURE GRAN PERCENT AUTO 1 % (0-1); LYMPHOCYTES ABSOLUTE AUTO 2.74 K/mm3 (0.84-5.20); LYMPHOCYTES PERCENT AUTO 21 % (21-46); MONOCYTES ABSOLUTE AUTO 0.83 K/mm3 (0.16-1.47); MONOCYTES PERCENT AUTO 6 % (4-13); Mean Corpuscular HGB 29.5 pg (26.0-34.0); Mean Corpuscular HGB Conc 32.6 g/dL (31.5-36.5); Mean Corpuscular Volume 91 fL (80-100); Mean Platelet Volume 9.2 fL (9.1-12.4); NEUTROPHILS ABSOLUTE AUTO 7.18 K/mm3 (1.96-9.15); NEUTROPHILS PERCENT AUTO 55 % (41-73); Platelet Count 354 K/mm3 (150-400); RDW Standard Deviation 49.5 fL (35.1-46.3); Red Blood Cell Count 5.01 M/mm3 (4.30-5.90); White Blood Cell Count 13.14 K/mm3 (4.00-11.30)
[2020-01-02 12:08] LABS: Bilirubin, Urine Neg (Neg); Blood, Urine 1+ (Neg); Glucose Qualitative, Urine Neg (Neg); Ketones, Urine Neg (Neg); Leukocyte Esterase, Urine Neg (Neg); Nitrite, Urine Neg (Neg); Protein, Urine 2+ (Neg); Urobilinogen, Urine NORM (Normal)
[2020-01-02 12:16] LABS: Appearance, Urine Clear (Clear); Color, Urine Yellow (P-Yellow)
[2020-01-02 12:17] LABS: Bacteria Rare /hpf; Squamous Epithelial Cells Rare /hpf (Few); White Blood Cells, Urine 0-2 /hpf (0-5)
[2020-01-02 12:30] LABS: Alanine Aminotransfer (ALT/SGP 19 U/L (12-78); Albumin, Blood 3.2 g/dL (3.4-5.0); Albumin/Globulin Ratio 0.8 (0.8-1.8); Alk Phos 103 U/L (50-136); Anion Gap 4 mmol/L (6-16); Aspartate Aminotrans (AST/SGOT 16 U/L (12-37); Bilirubin, Total 0.5 mg/dL (0.1-1.0); Blood Urea Nitrogen 13 mg/dL (8-24); Bun/Creatinine Ratio 10.5 (12.0-20.0); CO2, Blood 27 mmol/L (21-32); Calcium, Blood 8.8 mg/dL (8.5-10.1); Chloride, Blood 109 mmol/L (98-108); Creatinine, Blood 1.24 mg/dL (0.60-1.20); Globulin, Blood 4.1 g/dL (2.2-4.0); Glomerular Filtration Rate >60 (60-); Glucose, Blood 149 mg/dL (70-99); Potassium, Blood 4.1 mmol/L (3.5-5.5); Sodium, Blood 140 mmol/L (136-145); Total Protein, Blood 7.3 g/dL (6.4-8.2)
[2020-01-02 12:36] LABS: International Normalized Ratio 3.52; Prothrombin Time Results 35.1 Sec (9.7-11.5)
[2020-01-02] MEDS ORDERED: ANTIFUNGAL30 GM TOP (14:41)
[2020-01-02] MEDS ORDERED: [UNRECOGNIZED DRUG - OTHER] TOP (14:41)
[2020-01-02] MEDS ORDERED: LIDO700A20 TOP (14:44)
[2020-01-02] MEDS ORDERED: Percocet 7.5-31 EACH PO (14:44)
== END 2020-01-02 15:18 | disposition home or self-care (01) ==
LOC: ER 11:14
PROVIDERS: Physician Assistant
DX: E11.51 Type 2 diabetes mellitus with diabetic peripheral angiopathy without gangrene (principal); E11.621 Type 2 diabetes mellitus with foot ulcer; B35.3 Tinea pedis; I12.9 Hypertensive chronic kidney disease with stage 1 through stage 4 chronic kidney disease, or unspecified chronic kidney disease; E11.22 Type 2 diabetes mellitus with diabetic chronic kidney disease; N18.30 Chronic kidney disease, stage 3 unspecified; E78.5 Hyperlipidemia, unspecified; I25.810 Atherosclerosis of coronary artery bypass graft(s) without angina pectoris; F17.210 Nicotine dependence, cigarettes, uncomplicated; I25.2 Old myocardial infarction; Z88.5 Allergy status to narcotic agent; Z88.7 Allergy status to serum and vaccine; Z79.899 Other long term (current) drug therapy; Z91.041 Radiographic dye allergy status; Z79.4 Long term (current) use of insulin; Z87.442 Personal history of urinary calculi; Z95.1 Presence of aortocoronary bypass graft; Z95.5 Presence of coronary angioplasty implant and graft; Z79.02 Long term (current) use of antithrombotics/antiplatelets
CPT/HCPCS: 36415; 72070; 73630; 80053; 81001; 83690; 84145; 85025; 85610; 96374; 96375; 99283-25; J2405; J3010

== ENCOUNTER 2020-06-25 20:08 | Emergency (ER) | payer MEDICARE ==
[~2020-06-25] VITALS: Ht 180.3 cm; Wt 140.6 kg
[~2020-06-25 20:08] MED LIST changes: +ANTIFUNGAL30 GM TOP; +Percocet 7.5-31 EACH PO; +[UNRECOGNIZED DRUG - OTHER] TOP
[2020-06-25 20:42] LABS: BASOPHILS ABSOLUTE AUTO 0.09 K/mm3 (0.00-0.23); BASOPHILS PERCENT AUTO 1 % (0-2); EOSINOPHILS ABSOLUTE AUTO 0.48 K/mm3 (0.00-0.68); EOSINOPHILS PERCENT AUTO 4 % (0-6); Hematocrit 44.7 % (37.0-53.0); Hemoglobin 14.9 g/dL (13.5-17.5); IMMATURE GRAN ABSOLUTE AUTO 0.07 K/mm3 (0.00-0.10); IMMATURE GRAN PERCENT AUTO 1 % (0-1); LYMPHOCYTES ABSOLUTE AUTO 2.42 K/mm3 (0.84-5.20); LYMPHOCYTES PERCENT AUTO 20 % (21-46); MONOCYTES ABSOLUTE AUTO 0.89 K/mm3 (0.16-1.47); MONOCYTES PERCENT AUTO 7 % (4-13); Mean Corpuscular HGB 29.3 pg (26.0-34.0); Mean Corpuscular HGB Conc 33.3 g/dL (31.5-36.5); Mean Corpuscular Volume 88 fL (80-100); Mean Platelet Volume 9.4 fL (9.1-12.4); NEUTROPHILS ABSOLUTE AUTO 8.01 K/mm3 (1.96-9.15); NEUTROPHILS PERCENT AUTO 67 % (41-73); Platelet Count 318 K/mm3 (150-400); RDW Coefficient Variation 13.9 % (11.7-14.2); RDW Standard Deviation 44.7 fL (35.1-46.3); Red Blood Cell Count 5.09 M/mm3 (4.30-5.90); White Blood Cell Count 11.96 K/mm3 (4.00-11.30)
[2020-06-25 21:03] LABS: Alanine Aminotransfer (ALT/SGP 20 U/L (12-78); Albumin, Blood 2.8 g/dL (3.4-5.0); Albumin/Globulin Ratio 0.7 (0.8-1.8); Alk Phos 123 U/L (50-136); Anion Gap 5 mmol/L (6-16); Aspartate Aminotrans (AST/SGOT 18 U/L (12-37); Bilirubin, Total 0.3 mg/dL (0.1-1.0); Blood Urea Nitrogen 9 mg/dL (8-24); CO2, Blood 28 mmol/L (21-32); Calcium, Blood 8.6 mg/dL (8.5-10.1); Chloride, Blood 102 mmol/L (98-108); Creatinine, Blood 1.29 mg/dL (0.60-1.20); Globulin, Blood 3.8 g/dL (2.2-4.0); Glomerular Filtration Rate 58 (60-); Glucose, Blood 417 mg/dL (70-99); Potassium, Blood 3.7 mmol/L (3.5-5.5); Sodium, Blood 135 mmol/L (136-145); Total Protein, Blood 6.6 g/dL (6.4-8.2); Troponin I <0.015 ng/mL (0.000-0.040)
== END 2020-06-25 23:30 | disposition home or self-care (01) ==
LOC: ER 20:08
PROVIDERS: Emergency Medicine
DX: R07.9 Chest pain, unspecified (principal); E11.22 Type 2 diabetes mellitus with diabetic chronic kidney disease; I12.9 Hypertensive chronic kidney disease with stage 1 through stage 4 chronic kidney disease, or unspecified chronic kidney disease; N18.30 Chronic kidney disease, stage 3 unspecified; E78.5 Hyperlipidemia, unspecified; I25.810 Atherosclerosis of coronary artery bypass graft(s) without angina pectoris; F17.210 Nicotine dependence, cigarettes, uncomplicated; Z79.4 Long term (current) use of insulin; Z79.899 Other long term (current) drug therapy; Z79.02 Long term (current) use of antithrombotics/antiplatelets; Z88.5 Allergy status to narcotic agent; Z88.4 Allergy status to anesthetic agent; Z91.041 Radiographic dye allergy status; Z88.6 Allergy status to analgesic agent; Z87.442 Personal history of urinary calculi; Z95.1 Presence of aortocoronary bypass graft; Z95.5 Presence of coronary angioplasty implant and graft
CPT/HCPCS: 71046; 80053; 84484; 85025; 93005; 93010; 99285-25

== ENCOUNTER 2020-11-01 20:21 | Emergency (ER) | payer MEDICARE ==
[~2020-11-01] VITALS: Ht 180.3 cm; Wt 139.2 kg
[2020-11-01 21:14] LABS: BASOPHILS ABSOLUTE AUTO 0.14 K/mm3 (0.00-0.23); BASOPHILS PERCENT AUTO 1 % (0-2); EOSINOPHILS ABSOLUTE AUTO 0.55 K/mm3 (0.00-0.68); EOSINOPHILS PERCENT AUTO 4 % (0-6); Hematocrit 44.6 % (37.0-53.0); Hemoglobin 14.8 g/dL (13.5-17.5); IMMATURE GRAN ABSOLUTE AUTO 0.06 K/mm3 (0.00-0.10); IMMATURE GRAN PERCENT AUTO 0 % (0-1); LYMPHOCYTES ABSOLUTE AUTO 3.21 K/mm3 (0.84-5.20); LYMPHOCYTES PERCENT AUTO 22 % (21-46); MONOCYTES PERCENT AUTO 7 % (4-13); Mean Corpuscular HGB 29.4 pg (26.0-34.0); Mean Corpuscular HGB Conc 33.2 g/dL (31.5-36.5); Mean Corpuscular Volume 89 fL (80-100); Mean Platelet Volume 9.5 fL (9.1-12.4); NEUTROPHILS PERCENT AUTO 66 % (41-73); Platelet Count 330 K/mm3 (150-400); RDW Standard Deviation 45.1 fL (35.1-46.3); Red Blood Cell Count 5.04 M/mm3 (4.30-5.90); White Blood Cell Count 14.46 K/mm3 (4.00-11.30)
[2020-11-01 21:26] LABS: Alanine Aminotransfer (ALT/SGP 15 U/L (12-78); Albumin, Blood 2.6 g/dL (3.4-5.0); Albumin/Globulin Ratio 0.6 (0.8-1.8); Alk Phos 96 U/L (50-136); Anion Gap 5 mmol/L (6-16); Aspartate Aminotrans (AST/SGOT 12 U/L (12-37); Bilirubin, Total 0.5 mg/dL (0.1-1.0); Blood Urea Nitrogen 10 mg/dL (8-24); Bun/Creatinine Ratio 8.1 (12.0-20.0); CO2, Blood 28 mmol/L (21-32); Calcium, Blood 8.3 mg/dL (8.5-10.1); Chloride, Blood 104 mmol/L (98-108); Creatinine, Blood 1.23 mg/dL (0.60-1.20); Globulin, Blood 4.3 g/dL (2.2-4.0); Glomerular Filtration Rate 57 (60-); Glucose, Blood 297 mg/dL (70-99); Potassium, Blood 3.8 mmol/L (3.5-5.5); Sodium, Blood 137 mmol/L (136-145); Total Protein, Blood 6.9 g/dL (6.4-8.2); Troponin I <0.015 ng/mL (0.000-0.040)
== END 2020-11-02 00:07 | disposition home or self-care (01) ==
LOC: ER 20:21
PROVIDERS: Emergency Medicine
DX: R07.9 Chest pain, unspecified (principal); F17.210 Nicotine dependence, cigarettes, uncomplicated; E78.5 Hyperlipidemia, unspecified; I13.0 Hypertensive heart and chronic kidney disease with heart failure and stage 1 through stage 4 chronic kidney disease, or unspecified chronic kidney disease; I50.9 Heart failure, unspecified; N18.30 Chronic kidney disease, stage 3 unspecified; E11.22 Type 2 diabetes mellitus with diabetic chronic kidney disease; Z88.5 Allergy status to narcotic agent; Z88.7 Allergy status to serum and vaccine; Z88.2 Allergy status to sulfonamides; Z91.041 Radiographic dye allergy status; Z79.84 Long term (current) use of oral hypoglycemic drugs; Z79.899 Other long term (current) drug therapy
CPT/HCPCS: 71045; 80053; 84484; 85025; 93005; 93010; 99285-25

== ENCOUNTER 2021-10-20 14:44 | Inpatient (IN) | payer MEDICARE ==
[~2021-10-20] VITALS: Ht 177.8 cm; Wt 118.2 kg
[2021-10-20 15:21] LABS: BASOPHILS ABSOLUTE AUTO 0.08 K/mm3 (0.00-0.23); BASOPHILS PERCENT AUTO 1 % (0-2); EOSINOPHILS ABSOLUTE AUTO 0.07 K/mm3 (0.00-0.68); EOSINOPHILS PERCENT AUTO 1 % (0-6); Hematocrit 48.1 % (37.0-53.0); Hemoglobin 16.4 g/dL (13.5-17.5); IMMATURE GRAN ABSOLUTE AUTO 0.11 K/mm3 (0.00-0.10); IMMATURE GRAN PERCENT AUTO 1 % (0-1); LYMPHOCYTES ABSOLUTE AUTO 1.47 K/mm3 (0.84-5.20); LYMPHOCYTES PERCENT AUTO 13 % (21-46); MONOCYTES ABSOLUTE AUTO 0.58 K/mm3 (0.16-1.47); MONOCYTES PERCENT AUTO 5 % (4-13); Mean Corpuscular HGB 30.7 pg (26.0-34.0); Mean Corpuscular HGB Conc 34.1 g/dL (31.5-36.5); Mean Corpuscular Volume 90 fL (80-100); Mean Platelet Volume 10.2 fL (9.1-12.4); NEUTROPHILS ABSOLUTE AUTO 9.32 K/mm3 (1.96-9.15); NEUTROPHILS PERCENT AUTO 80 % (41-73); Platelet Count 357 K/mm3 (150-400); RDW Coefficient Variation 13.4 % (11.7-14.2); RDW Standard Deviation 43.7 fL (35.1-46.3); Red Blood Cell Count 5.35 M/mm3 (4.30-5.90); White Blood Cell Count 11.63 K/mm3 (4.00-11.30)
[2021-10-20 15:50] LABS: PCO2 Arterial 49.8 mmHg (35-45); PO2 Arterial 58.2 mmHg (80-100); pH Blood Arterial 7.34 (7.35-7.45)
[2021-10-20 15:50] LABS: International Normalized Ratio 1.03; Prothrombin Time Results 10.8 Sec (9.7-11.5)
[2021-10-20 15:55] LABS: Beta-hydroxybutyrate 3.1 mg/dL (0.2-2.8)
[2021-10-20 15:58] LABS: Alanine Aminotransfer (ALT/SGP 13 U/L (12-78); Albumin, Blood 2.7 g/dL (3.4-5.0); Albumin/Globulin Ratio 0.7 (0.8-1.8); Alk Phos 114 U/L (50-136); Anion Gap 7 mmol/L (6-16); Aspartate Aminotrans (AST/SGOT 27 U/L (12-37); Bilirubin, Direct <0.1 mg/dL (0.0-0.3); Bilirubin, Indirect Unable to Calculate mg/dL (0.1-0.7); Bilirubin, Total 0.9 mg/dL (0.1-1.0); Blood Urea Nitrogen 19 mg/dL (8-24); Bun/Creatinine Ratio 18.6 (12.0-20.0); CO2, Blood 26 mmol/L (21-32); Chloride, Blood 97 mmol/L (98-108); Creatinine, Blood 1.02 mg/dL (0.60-1.20); Globulin, Blood 3.9 g/dL (2.2-4.0); Glomerular Filtration Rate 77 (60-); Glucose, Blood 872 mg/dL (70-99); Magnesium, Blood 2.1 mg/dL (1.6-2.4); Potassium, Blood 4.9 mmol/L (3.5-5.5); Sodium, Blood 130 mmol/L (136-145); Total Protein, Blood 6.6 g/dL (6.4-8.2)
[2021-10-20 16:02] LABS: Influenza A, PCR NEGATIVE (NEGATIVE); Influenza B, PCR NEGATIVE (NEGATIVE); Resp Syncytial Virus, PCR NEGATIVE (NEGATIVE); SARS-Cov-2 (COVID-19) PCR, MMC NEGATIVE (NEGATIVE)
[2021-10-20] MEDS ORDERED: POTCHL20ER PO ×2 (17:40)
[2021-10-20] MEDS ORDERED: ATOR80 PO ×2 (17:41)
[2021-10-20] MEDS ORDERED: WARF2.5 PO ×2 (17:41)
[2021-10-20] MEDS ORDERED: AMLO5 PO ×2 (17:41)
[2021-10-20 18:18] LABS: Bun/Creatinine Ratio 17.9 (12.0-20.0); Calcium, Blood 9.2 mg/dL (8.5-10.1); Creatinine, Blood 1.12 mg/dL (0.60-1.20); Potassium, Blood 4.4 mmol/L (3.5-5.5)
--- NOTE | 2021-10-20 19:04 | NUR ---
fentanyl waste: 225 ml wasted from fentanyl drip bag which was discontinued. Witnessed by TASIA Saenz
--- NOTE | 2021-10-20 19:21 | NUR ---
PT ARRIVAL TO THE UNIT.... PT ARRIVED ON THE UNIT AT 1710, THE PT WAS INTUBATED AND SEDATED ON PROPOFOL AT 15MCG/KG AND FENTANYL DRIP AT 50MCG/HR. THE PT'S ET TUBE IS 7.5 AND 25 AT THE TEETH, VENT SETTINGS WERE 18/450/10/50% WITH O2 SATS >88% L/S COARSE T/O DIM IN THE BASES RR WAS 18. THE PT IS IN SR W/PVCs IN THE 60'S-70'S BP IS HYPERTENSIVE BUT TRENDING DOWN. THE PT HAS 1+ EDEMA NOTED TO HIS BLE. AN OG TUBE IS PRESENT AND SET TO LIS WITH RED/BROWN GASTRIC FLUID NOTED, PROVIDER IS AWARE. BT PRESENT AND VERY HYPOACTIVE, ABD IS SOFT TO PALPATION, THE PT HAS A LARGE HERNIA NOTED. A TEMP CISNEROS IS PRESENT WITH SCANT URINE NOTED IN THE TUBING. TEMP IS 99.6. NO SKIN ISSUES NOTED. THE PT'S BLOOD GLUCOSE ON ARRIVAL TO THE UNIT WAS 876, THE PT WAS STARTED ON AN INSULIN DRIP AT 7 UNITS/HR WITH Q1HR CHECKS. REPORT GIVEN TO ONCOMING RN.
[2021-10-20 19:25] LABS: Bun/Creatinine Ratio 14.6 (12.0-20.0); Calcium, Blood 9.4 mg/dL (8.5-10.1); Creatinine, Blood 1.23 mg/dL (0.60-1.20); Potassium, Blood 4.3 mmol/L (3.5-5.5)
--- NOTE | 2021-10-20 19:45 | NUR ---
ASSUMPTION OF CARE PT IS ALERT AND ORIENTED TO SELF AND SURROUNDINGS. CONVERSATION IS CONFUSED AT TIMES. HE IS IN RECLINER ON AIRVO AT 45L/50%, SATS > 95%. NON-PRODUCTIVE COUGH NOTED. NO S/S OF ACUTE RESP DISTRESS NOTED AT TIME OF ASSUMPTION OF CARE. PT HAS DISCONNECTED IV. IV WAS REDRESSED. IT REMAINS INTACT AND PATENT W/BLOOD RETURN AT THIS TIME. PT WAS PLACED BACK TO BED USING SARIAH LIFT. HE IS ABLE TO FOLLOW COMMANDS AND MAKE NEEDS KNOWN. CISNEROS CATH INTACT PATENT AND DRAINING YELLOW URINE TO GRAVITY BELOW THE LEVEL OF THE BLADDER. PT IS IN SR ON THE MEDICAL INSURANCE COLLECTOR W/BP WNL. HE IS AFEBRILE. HE HAS EXTENSIVE BRUISING W/A HEMATOMA ON HIS RIGHT CLAVICLE, MD IS AWARE. NO S/S OF ACUTE DISTRESS NOTED AT TIME OF ASSESSMENT OF CARE.
[2021-10-20 21:42] LABS: Bun/Creatinine Ratio 15.9 (12.0-20.0); Calcium, Blood 9.4 mg/dL (8.5-10.1); Creatinine, Blood 1.26 mg/dL (0.60-1.20); Potassium, Blood 3.6 mmol/L (3.5-5.5)
[2021-10-20 22:20] LABS: Glucose (ISTAT POC) 608 mg/dL (70-99)
--- NOTE | 2021-10-20 22:20 | NUR ---
PT HAS BECOME INCREASINGLY HYPOTENSIVE AND FEBRILE WITH NO URINE OUTPUT. DR VALERIO NOTIFIED. ORDERS GIVEN. WILL CONTINUE TO MONITOR.
[2021-10-20 23:47] LABS: Glucose, Blood 565 mg/dL (70-99)
[2021-10-21 01:48] LABS: Source, Urine Straight Cath
[2021-10-21 01:53] LABS: Bilirubin, Urine Neg (Neg); Blood, Urine 5+ (Neg); Glucose Qualitative, Urine 2+ (Neg); Ketones, Urine 1+ (Neg); Leukocyte Esterase, Urine 2+ (Neg); Nitrite, Urine Neg (Neg); Protein, Urine 3+ (Neg); Specific Gravity, Urine 1.005 (1.003-1.022); Urobilinogen, Urine NORM (Normal); pH, Urine 6.5 (5.0-8.0)
[2021-10-21 01:56] LABS: Appearance, Urine Turbid (Clear); Color, Urine Red (P-Yellow)
[2021-10-21 02:05] LABS: Bacteria Rare /hpf; Red Blood Cells, Urine TNTC /hpf (0-2); Squamous Epithelial Cells Not Seen /hpf (Few)
--- NOTE | 2021-10-21 02:30 | NUR ---
PT TEMPERATURE CONTINUES TO INCREASE DESPITE PRN TYLENOL, ICE PACKS AND COOLING BLANKET. COOLING WRAPS APPLIED AT THIS TIME. WILL CONTINUE TO MONITOR.
--- NOTE | 2021-10-21 02:49 | NUR ---
ASSUMED CARE OF PT 1914 PT INTUBATED AND ON MECHANICAL VENTILATION. TEMP 99.7. RR 20 WITH DIMINISHED LUNG SOUNDS THROUGHOUT. SPUTUM THICK AND WHITE UPON SUCTIONING. O2 SAT 98%. PT HAS CISNEROS CATHETER WITH NO DRAINAGE AT THIS TIME. DAYSHIFT REPORT GIVEN BY SHIRA DOZIER ALSO STATED NO URINE DRAINAGE SINCE TRANSFERED TO FLOOR. GLUCOSE LEVEL ABOVE 800 WHEN ASSUMING CARE. PT CURRENTLY ON INSULIN DRIP SET AT 9 UNITS/HOUR. PROPOFOL RUNNING AT 35MCG/HR. ALL PULSES PRESENT WEAK/THREADY. SPORATIC MILD BRUISING THROUGHOUT. MILD MOTTLING APPARENT THROUGHOUT. SKIN COOL TO TOUCH THROUGHOUT. NO FAMILY/FRIENDS PRESENT. PT SINUS RHYTHM WITH 1ST DEGREE BLOCK NOTED WITH OCCASIONAL PVC'S. OG TUBE SET TO INTERMITTANT SUCTIONING WITH BROWN DRAINAGE PRESENT AT THIS TIME. NS RUNNING AT 150 MLS/HR. WILL CONTINUE TO MONITOR.
--- NOTE | 2021-10-21 03:30 | NUR ---
2139 DR WOODARD NOTIFIED OF PT TRENDING HIGH FOR TEMPERATURE. TYLENOL 650 MG Q6 HOURS, BLOOD CULTURES X2 ORDERED.
--- NOTE | 2021-10-21 03:34 | NUR ---
AT APPROX 0130 PT TEMP UP TO 102.1 AND INCREASING. ICE PACKS, FAN AND COOLING BLANKET APPLIED WITH NO DECREASE APPARENT. RECTAL THERMOMETER AND COOLING WRAPS APPLIED AT APPROX 0230. WILL CONTINUE TO MONITOR PT.
[2021-10-21 04:14] LABS: BASOPHILS ABSOLUTE AUTO 0.07 K/mm3 (0.00-0.23); BASOPHILS PERCENT AUTO 0 % (0-2); EOSINOPHILS PERCENT AUTO 0 % (0-6); Hematocrit 49.2 % (37.0-53.0); Hemoglobin 16.9 g/dL (13.5-17.5); IMMATURE GRAN ABSOLUTE AUTO 0.24 K/mm3 (0.00-0.10); IMMATURE GRAN PERCENT AUTO 1 % (0-1); LYMPHOCYTES PERCENT AUTO 7 % (21-46); MONOCYTES ABSOLUTE AUTO 1.55 K/mm3 (0.16-1.47); MONOCYTES PERCENT AUTO 6 % (4-13); Mean Corpuscular HGB 30.9 pg (26.0-34.0); Mean Corpuscular HGB Conc 34.3 g/dL (31.5-36.5); Mean Corpuscular Volume 90 fL (80-100); Mean Platelet Volume 9.5 fL (9.1-12.4); NEUTROPHILS ABSOLUTE AUTO 22.06 K/mm3 (1.96-9.15); NEUTROPHILS PERCENT AUTO 86 % (41-73); Platelet Count 302 K/mm3 (150-400); RDW Coefficient Variation 13.4 % (11.7-14.2); RDW Standard Deviation 44.5 fL (35.1-46.3); Red Blood Cell Count 5.47 M/mm3 (4.30-5.90); White Blood Cell Count 25.72 K/mm3 (4.00-11.30)
[2021-10-21 04:37] LABS: Bun/Creatinine Ratio 15.3 (12.0-20.0); Creatinine, Blood 1.31 mg/dL (0.60-1.20); Potassium, Blood 3.6 mmol/L (3.5-5.5)
--- NOTE | 2021-10-21 05:30 | NUR ---
SHIFT SUMMARY - PEEP @8, FI02 @40 - B/P WNL, HR IN 70'S, CARDIAN MONITOR SHOWS SINUS RHYTHM WITH FLIPS TO AFIB OR PVC'S OCCASIONALLY. - PT SPIKED A FEVER OF UP TO 102.4 THROUGHOUT THE NIGHT. AFTER COOLING WRAPS PLACED PT HAS BEEN TRENDING DOWN, CURRENTLY AT 101.5. - PROPOFOL INFUSING AT 15, INSULING DRIP SET AT 6 UNITS/HOUR, NS @15 ML HR. - MODERATE THICK WHITE MUCUS WITH SUCTIONING NEEDED THROUGHOUT THE NIGHT. LUNG SOUNDS DIMINISHED IN ALL AREAS. - OG INTERMITENT SUCTIONING ONGOING WITH MINIMAL BROWN FLUIDS THIS SHIFT. - 75CC'S BLOOD TINGED URINE OUTPUT TO GRAVITY CATHETER BAG. CATHETER REPLACED BY WILBERT DOZIER MID SHIFT TO RULE OUT ANY CATHETER MALFUNCTION WITH PREVIOUS PLACED CATHETER. - POWER GLIDE INSERTED SONIA LOVE RN MID SHIFT. PATENT AND FLUSHING WELL WITH NO APPARENT ISSUES. PERIPHERAL IV'S PATENT AND FLUSHING WELL IN LEFT AND RIGHT AC'S. - CBG TRENDING DOWN THROUGHOUT SHIFT. CURRENTLY BELOW 300. - PT IS SHOWING SIGNS OF SENSATION DURING TREATMENTS. PT DOES NOT APPEAR TO BE IN PAIN. - PULSES WEAK/THREADY THROUGHOUT. - SKIN IS COOL TO THE TOUCH AND STILL SHOWING SIGNS OF MOTTELING. - ORAL CARE PROVIDED EVERY 4 HOURS OR PRN THROUGHOUT SHIFT. - SOFT RESTRAINTS ONGOING WITH NO SKIN BREAKDOWN FOR CIRCULATION ISSUES.
--- NOTE | 2021-10-21 08:31 | NUR ---
ASSUMED CARE OF OT, REPORT RCV'D FROM TASIA ATKINS. PT INTUBATED AND LIGHTLY SEDATED. VENT SETTINGS 18/450/5/40%. PROPOFOL @ 20 MCG/KG/MIN, DECREASED TO 10 MCG/KG/MIN TO ASSESS NEURO STATUS. PT FAILS TO OPEN EYES OR FOLLOW COMMANDS, MINIMAL WITHDRAWAL FROM PAINFUL STIMULATION. PUPILS 2MM BRISK RESPONSE. APPEARS DECORTICATE POSTURING UPPER/LOWER EXTREMETIES. CURRENT TEMP 99.9, COOLING BLANKET AND WRAPS IN PLACE. TEMP CISNEROS PATENT AND DRAINING VERY MINIMAL RED TINGED URINE. HYPOACTIVE BOWEL TONES, LARGE UMBILICAL HERNIA. INSULIN GTT REMAINS AT 6 U/HR. PT'S CALLED THIS MORNING, UPDATED ON PT'S PROGRESS.
--- NOTE | 2021-10-21 18:18 | NUR ---
SHIFT SUMMARY PT REMAINS INTUBATED AND LIGHTLY SEDATED. VENT SETTING 12/450/5/40%. PROPOFOL @ 20 MCG/KG/MIN. DURING SEDATION VACATION PT OPENS EYES SPONTANEOUSLY, FAILS TO FOLLOW COMMANDS, MOVES LEFT ARM AGAINST RESTRAINTS. SEDATION RESTARTED D/T INCREASED RR AND SBP. HR 58-70'S, BLOOD PRESSURE LABILE. AT 1600 VITAL HIGH PROTEIN STARTED AT 25 ML/HR WITH GOAL RATE 65 ML/HR. PT HAD 100 ML BLOODY URINARY OUTPUT FROM CISNEROS CATH. COOLING BLANKET REMOVED AT NOON D/T PT'S TEMP TRENDING DOWN, CURRENT TEMP 96.6. SEE PREVIOUS NOTES FROM THIS SHIFT, WILL REPORT TO ONCOMING NURSE.
[2021-10-21 20:54] LABS: PCO2 Arterial 41.9 mmHg (35-45); PO2 Arterial 87.5 mmHg (80-100); pH Blood Arterial 7.36 (7.35-7.45)
[2021-10-22 04:59] LABS: Base Excess Venous -4.3 mmol/L; Bicarbonate Venous 20.6 mmol/L (24.0-30.0); PCO2 Venous 37.9 mmHg (38-42); pH Blood Venous 7.36 (7.34-7.37)
[2021-10-22 05:19] LABS: BASOPHILS ABSOLUTE AUTO 0.07 K/mm3 (0.00-0.23); BASOPHILS PERCENT AUTO 0 % (0-2); EOSINOPHILS ABSOLUTE AUTO 0.09 K/mm3 (0.00-0.68); EOSINOPHILS PERCENT AUTO 1 % (0-6); Hematocrit 37.6 % (37.0-53.0); Hemoglobin 12.5 g/dL (13.5-17.5); IMMATURE GRAN ABSOLUTE AUTO 0.12 K/mm3 (0.00-0.10); IMMATURE GRAN PERCENT AUTO 1 % (0-1); LYMPHOCYTES ABSOLUTE AUTO 2.06 K/mm3 (0.84-5.20); LYMPHOCYTES PERCENT AUTO 12 % (21-46); MONOCYTES ABSOLUTE AUTO 1.14 K/mm3 (0.16-1.47); MONOCYTES PERCENT AUTO 7 % (4-13); Mean Corpuscular HGB 30.5 pg (26.0-34.0); Mean Corpuscular HGB Conc 33.2 g/dL (31.5-36.5); Mean Corpuscular Volume 92 fL (80-100); Mean Platelet Volume 9.6 fL (9.1-12.4); NEUTROPHILS ABSOLUTE AUTO 13.25 K/mm3 (1.96-9.15); NEUTROPHILS PERCENT AUTO 79 % (41-73); Platelet Count 226 K/mm3 (150-400); RDW Coefficient Variation 13.7 % (11.7-14.2); RDW Standard Deviation 46.5 fL (35.1-46.3); White Blood Cell Count 16.73 K/mm3 (4.00-11.30)
[2021-10-22 06:45] LABS: Magnesium, Blood 1.4 mg/dL (1.6-2.4)
--- NOTE | 2021-10-22 06:48 | NUR ---
SHIFT SUMMARY: PT SEDATED AND ON VENT IN SWB RESTRAINTS WHICH HE IS TOLLERATING FAIRLY WELL. SEDATION WAS PAUSED FOR ABOUT 15-20 MINUTES AROUND 1999 LAST NIGHT AND PT WAS ABLE TO OPEN EYES TO VOICE AND WITHDRAW FROM PAIN TO ALL EXTREMITIES. SEDATION WAS RESTRATED AND FENTANYL GIVEN DUE TO PT BITING THE ETT AND FIGHTING THE VENTILATOR SETTINGS. PT OTHERWISE TOLLERATED VENT SETTINGS WELL, VC-AC RR-12, VT-450, FIO2-40% AND PEEP-8. VSS OVER NIGHT WITH SPO2 MOSTLY 97-100%
[2021-10-22 06:56] LABS: Bun/Creatinine Ratio 15.6 (12.0-20.0); Creatinine, Blood 1.35 mg/dL (0.60-1.20); Phosphorus, Blood 2.7 mg/dL (2.5-4.9); Potassium, Blood 2.2 mmol/L (3.5-5.5)
[2021-10-22 07:10] LABS: Calcium, Blood 6.1 mg/dL (8.5-10.1)
--- NOTE | 2021-10-22 09:54 | NUR ---
AM NOTE... ASSUMED CARE OF PT AT 0700 THE PT IS INTUBATED AND SEDATED WITH PROPOFOL RUNNING AT 25MCG, VENT SETTINGS AC/VC: 12/450/8/40% WITH O2 SATS >95% L/S CLEAR AND DIM IN THE BASES RR IS 17-19. ET TUBE IS 7.5 AND 24 AT THE TEETH. SMALL AMOUNT OF THICK WHITE/CLEAR SPUTUM NOTED WHEN SUCTIONED. THE PT IS IN SR IN THE 70'S-80'S W/OCC PVCs, BP IS STABLE WITH MAPS >65. THE PT HAS TRACE EDEMA NOTED TO HIS BLE. OG TUBE IS PATENT RUNNING TUBE FEEDS AT A GOAL OF 45MLS/HR. BT PRESENT AND HYPERACTIVE, ABD IS SOFT AND NONTENDER TO PALPATION. THE PT'S CISNEROS IS PATENT AND DRAINING SCANT DARK YELLOW URINE TO GRAVITY. THE INSULIN DRIP WAS STOPPED AND THE PT WAS CHANGED TO SUB Q INSULIN Q6HRS. AT 0915 THE PT'S PROPOFOL WAS STOPPED FOR A SEDATION VACATION, AT 0945 THE PT OPENED HIS EYES AND WAS ABLE TO FOLLOW SIMPLE COMMANDS, AT 0947 THE PT WAS PLACED ON PRESSURE SUPPORT OF 8/5 AND 40% FOR A WEANING TRIAL. CURRENTLY THE PT IS TOLERATING THIS WELL. WILL CONTINUE TO MONITOR.
--- NOTE | 2021-10-22 11:11 | NUR ---
PT UPDATE.... AT 1055 THE PT WAS EXTUBATED TO 3L NC, THE PT HAS A VERY WEAK COUGH AT THIS TIME, VS STABLE. THE PT'S WAS CALLED AND UPDATED ON THE PT'S CONDITION AND PLAN OF CARE. WILL CONTINUE TO MONITOR.
--- NOTE | 2021-10-22 17:24 | NUR ---
SHIFT SUMMARY.... NO ACUTE NEGATIVE CHANGES SINCE PREVIOUS NOTES, THE PT HAS BEEN STABLE ON 4L NC WITH O2 SATS >90% L/S CONTINUE TO BE CLEAR AND DIM. THE PT IS A&Ox2 ABLE TO FOLLOW COMMANDS WHEN HE WANTS TO BUT ALSO HAS BEEN PULLIING OFF THE O2 PROB AND HIS NASAL CANNULA SEVERAL TIMES PER HOUR. THE PT HAS BEEN EDUCATED ON WHY HE NEEDS THESE THINGS, HE VERBALIZED HIS UNDERSTANDING, WAITS FOR STAFF TO LEAVE THE ROOM THEN PULLS THEM OFF AGAIN. THE PT HAS NOT HAD A BM THIS SHIFT, URINARY OUTPUT HAS BEEN MINIMAL AGAIN THIS SHIFT. THE PT PASSED HIS BEDSIDE SWALLOW EVAL BY THIS RN AND DID WELL WITH SMALL SIPS OF WATER WITH A STRAW. THE PT'S HR AND BP HAVE BEEN STABLE T/O THIS SHIFT. CALL LIGHT IN REACH WILL CONTINUE TO MONITOR UNTIL REPORT IS GIVEN TO ONCOMING RN.
--- NOTE | 2021-10-22 19:08 | NUR ---
PT UPDATE.... THE PT HAD A KUB ULTRA SOUND IN THE ROOM, PER THE US TECH THE PT HAD >900MLS OF URINE IN HIS BLADDER. THE PT'S CISNEROS WAS CHANGED OUT FOR A 14 FR COUDE JERRELL OLD CISNEROS WAS REMOVED THERE WAS URINE COMING OUT AROUND THE CISNEROS AND THERE WAS ONLY 3MLS OF WATER IN THE CISNEROS BALOON. ONCE THE NEW CISNEROS WAS PLACED A UA W/CULT WAS SENT TO THE LAB, THE PT'S URINE WAS A JAIME RED/ORANGE COLOR.
[2021-10-22 19:10] LABS: Source, Urine Foley catheter
--- NOTE | 2021-10-22 19:10 | NUR ---
ASSUMPTION OF CARE ASSISTED DAY RN SHIRA W/BED CHANGE. PT TOLERATED WELL. HE BEEN COMBATIVE PER REPORT TODAY AND IS SOFT BILATERAL WRIST RESTRAINTS. HE IS ON 4L NC AND OXYGEN SAT 96%, EXTUBATED EARLIER TODAY. NO RESP DISTRESS NOTED AT THIS TIME. A NEW CISNEROS CATH WAS RECENTLY PLACED. BLOODY YELLOW URINE NOTED DRAINING. PT HAD JUST HAD A BOWEL MOVEMENT. HE IS ALERT BUT DID NOT VERBALLY ANSWER ANY OF MY QUESTIONS AT THIS TIME. SR W/1ST DEGREE AV BLOCK AND PVCS NOTED ON PRODUCTION FINISHER. SLIGHTLY HYPERTENSIVE BUT BEYOND MEDICATION PARAMETERS FOR PRN AT THIS TIME.
[2021-10-22 19:16] LABS: Appearance, Urine Cloudy (Clear); Bilirubin, Urine Neg (Neg); Blood, Urine 5+ (Neg); Color, Urine Amber (P-Yellow); Glucose Qualitative, Urine 4+ (Neg); Ketones, Urine Neg (Neg); Leukocyte Esterase, Urine 2+ (Neg); Nitrite, Urine Neg (Neg); Protein, Urine 3+ (Neg); Urobilinogen, Urine NORM (Normal)
[2021-10-22 19:31] LABS: Bacteria Mod /hpf; Mucus Light (0-Heavy); Red Blood Cells, Urine TNTC /hpf (0-2); Squamous Epithelial Cells Rare /hpf (Few); Yeast/Fungi Urine Many /hpf
--- NOTE | 2021-10-22 22:01 | NUR ---
SPOKE TO PROVIDER CARLEEN ABOUT PT ORDER FOR 50U GLARGINE AND CONCERN DUE TO NO PO INTAKE AT THIS TIME. ORDER GIVEN TO HOLD DOSE FOR TONIGHT.
[2021-10-23 05:37] LABS: BASOPHILS PERCENT AUTO 1 % (0-2); EOSINOPHILS ABSOLUTE AUTO 0.28 K/mm3 (0.00-0.68); EOSINOPHILS PERCENT AUTO 2 % (0-6); Hematocrit 49.3 % (37.0-53.0); Hemoglobin 16.8 g/dL (13.5-17.5); IMMATURE GRAN ABSOLUTE AUTO 0.13 K/mm3 (0.00-0.10); IMMATURE GRAN PERCENT AUTO 1 % (0-1); LYMPHOCYTES ABSOLUTE AUTO 2.15 K/mm3 (0.84-5.20); LYMPHOCYTES PERCENT AUTO 12 % (21-46); MONOCYTES ABSOLUTE AUTO 1.43 K/mm3 (0.16-1.47); MONOCYTES PERCENT AUTO 8 % (4-13); Mean Corpuscular HGB 30.4 pg (26.0-34.0); Mean Corpuscular HGB Conc 34.1 g/dL (31.5-36.5); Mean Corpuscular Volume 89 fL (80-100); Mean Platelet Volume 9.8 fL (9.1-12.4); NEUTROPHILS ABSOLUTE AUTO 14.07 K/mm3 (1.96-9.15); NEUTROPHILS PERCENT AUTO 78 % (41-73); Platelet Count 267 K/mm3 (150-400); RDW Coefficient Variation 14.2 % (11.7-14.2); RDW Standard Deviation 46.5 fL (35.1-46.3); Red Blood Cell Count 5.53 M/mm3 (4.30-5.90); White Blood Cell Count 18.16 K/mm3 (4.00-11.30)
--- NOTE | 2021-10-23 05:46 | NUR ---
SHIFT DOM PT HAS BEEN AWAKE MOST OF THE NIGHT. HE DOES FOLLOW COMMANDS BUT DOES NOT USUALLY RESPOND VERBALLY TO QUESTIONS. HE HAS NOT BEEN COMBATIVE THIS SHIFT HE WAS THE SHIFT PRIOR BUT HAS ATTEMPTED TO REMOVE HIS LINES. HE HAS HAD NO EPISODES OF ACUTE DISTRESS. HE IS ON 2LNC W/OXYGEN SAT 92%. HE DID RECEIVE ONE DOSE OF LABETOLOL FOR HYPERTENSION THAT MET MEDICATION PARAMETERS.
[2021-10-23 05:48] LABS: Magnesium, Blood 2.2 mg/dL (1.6-2.4)
[2021-10-23 05:55] LABS: Albumin, Blood 2.4 g/dL (3.4-5.0); Albumin/Globulin Ratio 0.6 (0.8-1.8); Bilirubin, Total 0.8 mg/dL (0.1-1.0); Bun/Creatinine Ratio 14.5 (12.0-20.0); Creatinine, Blood 1.93 mg/dL (0.60-1.20); Globulin, Blood 4.1 g/dL (2.2-4.0); Phosphorus, Blood 3.7 mg/dL (2.5-4.9); Potassium, Blood 3.5 mmol/L (3.5-5.5); Total Protein, Blood 6.5 g/dL (6.4-8.2)
[2021-10-23 05:56] LABS: Calcium, Blood 8.7 mg/dL (8.5-10.1)
--- NOTE | 2021-10-23 08:11 | NUR ---
CARE OF PT ASSUMED AT 0700. PT AWAKE AND VERY CONFUSED. CALM AND FOLLOWS COMMANDS, VERY SLOW TO ANSWER QUESTIONS, SOMETIMES DOES NOT ANSWER AND JUST STARES. PT THOUGHT HIS REFLECTION IN THE MIRROR WAS A STRANGER. PT THOUGHT THE RED LIGHT ON THE FINGER PROBE WAS A FIRE AND HE WAS BLOWING ON IT. PT PASSED BEDSIDE SWALLOW. COUGH IS WEAK TO MODERATE, LUNGS CLEAR, SATS >95% ON RA. DR VALERIO AT BEDSIDE THIS AM. PT NOW PCU STATUS. PT/OT ORDERED. WILL GET PT OOB TO CHAIR NAILA TODAY, DIET TO START.
--- NOTE | 2021-10-23 08:33 | NUR ---
PT HAS A HX OF PAROXYSMAL AFIB, PT WAS IN SINUS THIS AM AND NOW IS IN AFIB W RATE 70'S, DR VALERIO NOTIFIED.
--- NOTE | 2021-10-23 10:35 | NUR ---
LEAKING AROUND 14F CATHETER NOTED, NO URINE OUTPUT TO BAG, CATHETER FLUSHED, NOT PATENT. BLADDER SCANNER SHOWS >990CC URINE. ATTEMPTED TO PLACE 18 F CISNEROS. BALLOON INFLATED W/O RESISTANCE, BUT VERY LITTLE URINE OUTPUT, LARGE CLOT NOTED. WHEN FLUSHED URINE CAME BACK AROUND CATH. ATTEMPTED TO DEFLATE BALLOON, DIFFICULT TIME DEFLATING BALLOON, DR VALERIO NOTIFIED. ABLE TO DEFLATE BALLOON AFTER MULTIPLE ATTEMPTS, CISNEROS REMOVED. PT STATES "IM GOING TO BE SICK TO MY STOMACH", ZOFRAN GIVEN. DR VALERIO CONSULTED IR FOR POSSIBLE SUPRAPUBIC CATHETER PLACEMENT.
--- NOTE | 2021-10-23 14:10 | NUR ---
PT SLEEPING, CALM AND COOPERATIVE. REMAINS CONFUSED. PT STATES HE NEEDS TO "PEE". 10CC PASSED. BLADDER SCAN SHOWS 1490. MESSAGE LEFT FOR DR MERCEDES. WILL NOTIFY DR VALERIO.
--- NOTE | 2021-10-23 14:21 | NUR ---
DR VALERIO NOTIFIED.
--- NOTE | 2021-10-23 17:07 | NUR ---
DR MERCEDES NOT AVAIABLE TO SEE PT UNTIL TOMORROW AM, DR VALERIO HAS CALL MULTIPLE FACILITIES FOR TRANSFER/UROLOGY; NO AVAILABLE BEDS AT THIS TIME. PT SLEEPING, APPEARS COMFORTABLE, BP WNL, ABLE TO VOID/INCONTINENT SMALL AMTS 10-50CC. URINE DARK YELLOW. PT REMAINS CONFUSED, AND MADE STATEMENT THAT WAS INAPPROPRIATELY SEXUAL, ABLE TO REDIRECT PT AND SET BOUNDRIES.
--- NOTE | 2021-10-23 18:46 | NUR ---
PT INCONTINENT OF URINE AND STOOL. BLADDER SCAN SHOWS 1348, SO APPROX 150CC U/O. PT BECAME AGIATED AND ATTEMPTED TO PULL OUT IV AND PULL OFF LEADS, RESTRAINTS PLACED.
--- NOTE | 2021-10-23 19:00 | NUR ---
Assumed care. Report received from julian RN. Pt resting in bed, on room air, soft wrist restraints in place. PG in JACQUES, IV in L/forearm. No acute needs at this time, vs stable. Will continue to monitor.
[2021-10-24 03:29] LABS: BASOPHILS ABSOLUTE AUTO 0.09 K/mm3 (0.00-0.23); BASOPHILS PERCENT AUTO 1 % (0-2); EOSINOPHILS ABSOLUTE AUTO 0.37 K/mm3 (0.00-0.68); EOSINOPHILS PERCENT AUTO 3 % (0-6); Hematocrit 47.8 % (37.0-53.0); Hemoglobin 16.1 g/dL (13.5-17.5); IMMATURE GRAN ABSOLUTE AUTO 0.11 K/mm3 (0.00-0.10); IMMATURE GRAN PERCENT AUTO 1 % (0-1); LYMPHOCYTES ABSOLUTE AUTO 1.68 K/mm3 (0.84-5.20); LYMPHOCYTES PERCENT AUTO 12 % (21-46); MONOCYTES ABSOLUTE AUTO 1.03 K/mm3 (0.16-1.47); MONOCYTES PERCENT AUTO 7 % (4-13); Mean Corpuscular HGB 30.8 pg (26.0-34.0); Mean Corpuscular HGB Conc 33.7 g/dL (31.5-36.5); Mean Corpuscular Volume 92 fL (80-100); Mean Platelet Volume 9.5 fL (9.1-12.4); NEUTROPHILS ABSOLUTE AUTO 11.15 K/mm3 (1.96-9.15); NEUTROPHILS PERCENT AUTO 77 % (41-73); Platelet Count 314 K/mm3 (150-400); RDW Coefficient Variation 14.6 % (11.7-14.2); RDW Standard Deviation 49.1 fL (35.1-46.3); Red Blood Cell Count 5.22 M/mm3 (4.30-5.90); White Blood Cell Count 14.43 K/mm3 (4.00-11.30)
[2021-10-24 03:44] LABS: Bun/Creatinine Ratio 15.7 (12.0-20.0); Calcium, Blood 8.6 mg/dL (8.5-10.1); Creatinine, Blood 1.85 mg/dL (0.60-1.20); Magnesium, Blood 2.3 mg/dL (1.6-2.4); Phosphorus, Blood 4.3 mg/dL (2.5-4.9); Potassium, Blood 3.6 mmol/L (3.5-5.5)
--- NOTE | 2021-10-24 07:09 | NUR ---
Received report from Noé DOZIER. Patient laying on right side flat and awake. heis alert and oriented to person, place, year and month. His speech is slow and is able to communicate simple needs. He fidgets alot and pulls VS equipment off and needs to be re-directed to leave on. Plane is for supra-pubic cath today. He has bee incontinent to stool and urine, He is on RA and sat >90%. he seems to be in sinus with PVC's.He has 20ga PowerGlide to JACQUES and is infusing NS TKO.
--- NOTE | 2021-10-24 09:40 | NUR ---
Patient finished working with Therapy and was up to chair with walker. He was incontinent to urine and stool when standing. Dr Dukes was by and did consent for procedure. Heart Ellerslie came by and took him for suprpubic cath procedure.
--- NOTE | 2021-10-24 11:29 | NUR ---
Patient returned to room post suprapubic cath placement and had 300 ml'd cloudy yellow urine for a total of 1300 mls. He was resting when came back. He awakened easily and took PO meds with liquids and back to resting. Held stool softeners r/t current liquid stools.
--- NOTE | 2021-10-24 14:17 | NUR ---
No significant changes with patient. Removed 400 yellow urine from Supra pubic cath bag. VSS
--- NOTE | 2021-10-24 16:00 | NUR ---
Patient has been resting and awakened during report to Juwan DOZIER. CBG 168 and covered per SS. He sat up and took PO med with Root Beer. He has been advised he is transferring and will call family to let them know. VSS Now that he is awake I placed in on RA again and sats 93%.
--- NOTE | 2021-10-24 17:49 | NUR ---
END OF SHIFT/ TRANSFER SUMMARY: INFUSING ZOSYN AND TKO. PATIENT IN NO SIGN OF ACUTE DISTRESS WILL CONTINUE TO MONITOR UNTIL SHIFT CHANGE. P[ATIENT ABLE TO ANSWER QUESTIONS REPORT OF INAAPROPRIATE WITH FEMALE STAFF IN ICU. SUPRAPUBIC CATHETER WAS PLACED TODAY SITE CDI FLOWING URINE. PATIENT DENIES PAIN OF ANY KIND ANSWERS. BED ALARM ON FOR SAFTEY, CATHETER BAG COVERED WITH BLANKET BOTH IV'S FLUSH WELL. TELE IN PLACE. WILL CONTINUE TO MONITOR UNTIL SHIFT CHANGE.
[2021-10-25 04:26] LABS: BASOPHILS PERCENT AUTO 1 % (0-2); EOSINOPHILS ABSOLUTE AUTO 0.59 K/mm3 (0.00-0.68); EOSINOPHILS PERCENT AUTO 4 % (0-6); Hematocrit 44.6 % (37.0-53.0); Hemoglobin 14.9 g/dL (13.5-17.5); IMMATURE GRAN ABSOLUTE AUTO 0.18 K/mm3 (0.00-0.10); IMMATURE GRAN PERCENT AUTO 1 % (0-1); LYMPHOCYTES ABSOLUTE AUTO 2.14 K/mm3 (0.84-5.20); LYMPHOCYTES PERCENT AUTO 15 % (21-46); MONOCYTES ABSOLUTE AUTO 1.38 K/mm3 (0.16-1.47); MONOCYTES PERCENT AUTO 10 % (4-13); Mean Corpuscular HGB 30.5 pg (26.0-34.0); Mean Corpuscular HGB Conc 33.4 g/dL (31.5-36.5); Mean Corpuscular Volume 91 fL (80-100); NEUTROPHILS ABSOLUTE AUTO 10.05 K/mm3 (1.96-9.15); NEUTROPHILS PERCENT AUTO 70 % (41-73); RDW Coefficient Variation 14.5 % (11.7-14.2); RDW Standard Deviation 48.7 fL (35.1-46.3); Red Blood Cell Count 4.88 M/mm3 (4.30-5.90); White Blood Cell Count 14.44 K/mm3 (4.00-11.30)
[2021-10-25 04:29] LABS: Mean Platelet Volume 9.6 fL (9.1-12.4); Platelet Count 199 K/mm3 (150-400)
[2021-10-25 04:37] LABS: Bun/Creatinine Ratio 17.5 (12.0-20.0); Calcium, Blood 8.1 mg/dL (8.5-10.1); Creatinine, Blood 1.6 mg/dL (0.60-1.20); Potassium, Blood 3.5 mmol/L (3.5-5.5)
--- NOTE | 2021-10-25 05:12 | NUR ---
SHIFT SUMMARY PT ALERT AND ORIENTED X3. AFEBRILE. ON RA SATS OVER 92% WHILE AWAKE. DESATS TO 87 AT TIMES WHILE SLEEPING. REFUSED NC AT NIGHT. HR 60-80'S SINUR ARRYTHMIA W/ PVC'S. SUPRAPUBIC CATH DRAINING DARK YELLOW URINE TO GRAVITY. NO C/O ZANDER OR DISCOMFORT. PT ASLEEP MOST OF NIGHT. IN BED WITH CALL ALARM AT SIDE, WILL CONTINUE TO MONITOR UNTIL REPORT GIVEN TO DAYSHIFT RN
--- NOTE | 2021-10-25 07:20 | NUR ---
ASSUMED CARE: PT RESTING QUIETLY. ON RA SATTING LOW 90S. CONGESTION IN LUNGS HEARD WHEN STANDING NEXT TO PT. NSR IN 60S ON TELE. DENIES NEEDS OR CONCERNS AT THIS TIME.
--- NOTE | 2021-10-25 10:16 | NUR ---
TELE STATES PT RECENTLY STARTED CHANGING RHYTHM BETWEEN AFIB AND AFLUTTER. WAS NSR THIS AM. REVIEWED CHART AND FOUND HISTORY OF AFIB IN DR NOTE. WILL DISCUSS WITH
--- NOTE | 2021-10-25 11:30 | NUR ---
DR DIAMOND CAME TO SEE PT AND WAS MADE AWARE OF PT SWITCHING BETWEEN AFIB AND AFLUTTER
[2021-10-25 14:42] LABS: International Normalized Ratio 1.13; Prothrombin Time Results 11.8 Sec (9.7-11.5)
--- NOTE | 2021-10-25 17:50 | NUR ---
SHIFT SUMMARY: PT NOW MED/TELE STATUS. PT HAS BEEN IRRITATED WITH STAFF THIS SHIFT AND HAS REQUIRED ALARMS DUE TO BEING IMPULSIVE. SP CATH IN PLACE WITH LARGE AMOUNTS VOIDED DUE TO DIURETICS. PLAN IS FOR DC TO SNF WHEN STABLE. NO ACUTE NEEDS AT THIS TIME.
[2021-10-26 04:46] LABS: International Normalized Ratio 1.14; Prothrombin Time Results 11.9 Sec (9.7-11.5)
--- NOTE | 2021-10-26 05:14 | NUR ---
SHIFT SUMMARY PT ALERT AND ORIENTED X3. COOPERATIVE TO CARE. CONFUSED AT TIMES. AMBULATED 100FT AROUND UNIT W/ GB AND WALKER, ASKED TO GO THROUGH A WALL THINKING IT WAS A DOOR. PULSE 60'S. AFEBRILE. BP STABLE. L ABDOMINAL PAIN RELIEVED WITH TYLENOL. ON RA SATS OVER 93%. IN BED SLEEPING WITH CALL ALARM AT SIDE, WILL CONTINUE TO MONITOR UNTIL REPORT GIVEN TO DAYSHIFT RN
--- NOTE | 2021-10-26 14:54 | NUR ---
PT CURRENTLY SLEEPING. CATHETER BAG EMPTIED BY TOOLING SUPERVISOR. PT HAVING SMALL PAUSES IN BREATHING PATTERN WHILE ASLEEP. PT ON RA, SATS 91%.
--- NOTE | 2021-10-26 18:13 | NUR ---
SHIFT SUMMARY PT A/O X3 AND COOPERATIVE OF CARE. PT BP'S ELEVATED DURING SHIFT WITH SBP'S IN THE 150'S. NO REORT OF CHEST PAIN/PRESSURE THROUGHOUT SHIFT. OTHER VSS THROUGHOUT SHIFT WITH O2 SATS IN THE 90'S ON RA. NO REPORT OF SOB/DYSPNEA THORUGHOUT SHIFT. PT BLOOD SUGARS ELEVATED DURING SHIFT, TREATED PER EMAR. PT HAS SUPRAPUBIC CATHETER IN PLACE DRAINING TO GRAVITY, FREQUENT DRAING REQUIRED, YELLOW URINE. PT ABLE TO EXRESS NEEDS DURING SHIFT.
[2021-10-27 04:10] LABS: BASOPHILS ABSOLUTE AUTO 0.11 K/mm3 (0.00-0.23); BASOPHILS PERCENT AUTO 1 % (0-2); EOSINOPHILS ABSOLUTE AUTO 0.77 K/mm3 (0.00-0.68); EOSINOPHILS PERCENT AUTO 5 % (0-6); Hematocrit 45.3 % (37.0-53.0); Hemoglobin 15.7 g/dL (13.5-17.5); IMMATURE GRAN ABSOLUTE AUTO 0.17 K/mm3 (0.00-0.10); IMMATURE GRAN PERCENT AUTO 1 % (0-1); LYMPHOCYTES ABSOLUTE AUTO 3.24 K/mm3 (0.84-5.20); LYMPHOCYTES PERCENT AUTO 22 % (21-46); MONOCYTES ABSOLUTE AUTO 1.43 K/mm3 (0.16-1.47); MONOCYTES PERCENT AUTO 10 % (4-13); Mean Corpuscular HGB 30.5 pg (26.0-34.0); Mean Corpuscular HGB Conc 34.7 g/dL (31.5-36.5); Mean Corpuscular Volume 88 fL (80-100); Mean Platelet Volume 9.7 fL (9.1-12.4); NEUTROPHILS ABSOLUTE AUTO 9.01 K/mm3 (1.96-9.15); NEUTROPHILS PERCENT AUTO 61 % (41-73); Platelet Count 307 K/mm3 (150-400); RDW Coefficient Variation 13.7 % (11.7-14.2); RDW Standard Deviation 44.3 fL (35.1-46.3); Red Blood Cell Count 5.15 M/mm3 (4.30-5.90); White Blood Cell Count 14.73 K/mm3 (4.00-11.30)
[2021-10-27 04:24] LABS: International Normalized Ratio 1.19; Prothrombin Time Results 12.4 Sec (9.7-11.5)
[2021-10-27 05:06] LABS: Albumin, Blood 2.1 g/dL (3.4-5.0); Albumin/Globulin Ratio 0.6 (0.8-1.8); Bilirubin, Total 0.6 mg/dL (0.1-1.0); Bun/Creatinine Ratio 15.1 (12.0-20.0); Calcium, Blood 8.2 mg/dL (8.5-10.1); Creatinine, Blood 1.19 mg/dL (0.60-1.20); Globulin, Blood 3.3 g/dL (2.2-4.0); Total Protein, Blood 5.4 g/dL (6.4-8.2)
--- NOTE | 2021-10-27 05:20 | NUR ---
NOC SHIFT SUMMARY PT ALERT TO LETHARGIC, ORIENTED X3. VSS PER PT TREND, ON RA. SP CATH TO DEPENDENT DRAINAGE W/ADEQUATE UOP. AFIB/PVC ON TELEMETRY. NO COMPLAINTS OF PAIN OR DISCOMFORT. WILL CONTINUE TO MONITOR AND PASS ON TO DAY RN
--- NOTE | 2021-10-27 14:44 | NUR ---
REPORT PASSED TO YANNI, MEDICAL FLOOR RN AT ABOUT 1410. PT TRANSFERED TO ROOM 337 AT ABOUT 1430 WITH PADMINI INFANTE. PT FAMILY MADE AWARE.
--- NOTE | 2021-10-27 14:59 | NUR ---
ASSUMED CARE OF PATIENT AT 1437 UPON HIS TRANSFER FROM PCU, CAME TO UNIT VIA HIS BED. WAS DOZING, AWAKENED TO HIS NAME. TELEMETRY VERIFIED WITH Zoraida POWERS. ORIENTED X 3, SLEEPY, SLOW TO RESPOND. DENIED PAIN. REQUESTED WARM BLANKET, WHICH WAS GIVEN. RESTING COMFORTABLY.
--- NOTE | 2021-10-27 18:16 | NUR ---
SHIFT SUMMARY: NO ACUTE EVENTS. SLEPT ALL AFTERNOON UNTIL DINNER. TELE SHOWS AFIB/AFLUTTER IN THE 80'S. SUPRAPUBIC CATHETER DRAINING SLIGHTLY CLOUDY YELLOW URINE. IS SLOW TO RESPOND, FLAT AFFECT. SR. 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 APPETITE OK. CPAP ORDERED FOR HS.
--- NOTE | 2021-10-28 04:04 | NUR ---
SHIFT SUMMARY PT HAS BEEN VERY SLEEPY AND JUST WANTS TO BE LEFT ALONE. HE IS COMPLAINT WITH CARE, BUT WITHDRAWN AND HAS A VERY FLAT AFFECT. HE DENIES PAIN OR DISCOMFORT. SUPRAPUBIC CATH PATENT AND DRAINING LIGHT YELLOW URINE. PT HAS NOT BEEN OUT OF BED ALL SHIFT. BED INLOWEST POSITION AND CALL LIGHT IN PLACE.
[2021-10-28 05:27] LABS: BASOPHILS PERCENT AUTO 1 % (0-2); EOSINOPHILS ABSOLUTE AUTO 0.68 K/mm3 (0.00-0.68); EOSINOPHILS PERCENT AUTO 5 % (0-6); Hematocrit 44.9 % (37.0-53.0); Hemoglobin 15.2 g/dL (13.5-17.5); IMMATURE GRAN ABSOLUTE AUTO 0.24 K/mm3 (0.00-0.10); IMMATURE GRAN PERCENT AUTO 2 % (0-1); LYMPHOCYTES ABSOLUTE AUTO 3.37 K/mm3 (0.84-5.20); LYMPHOCYTES PERCENT AUTO 24 % (21-46); MONOCYTES ABSOLUTE AUTO 1.49 K/mm3 (0.16-1.47); MONOCYTES PERCENT AUTO 11 % (4-13); Mean Corpuscular HGB 30.4 pg (26.0-34.0); Mean Corpuscular HGB Conc 33.9 g/dL (31.5-36.5); Mean Corpuscular Volume 90 fL (80-100); Mean Platelet Volume 9.6 fL (9.1-12.4); NEUTROPHILS ABSOLUTE AUTO 8.31 K/mm3 (1.96-9.15); NEUTROPHILS PERCENT AUTO 59 % (41-73); Platelet Count 305 K/mm3 (150-400); RDW Standard Deviation 45.4 fL (35.1-46.3); White Blood Cell Count 14.19 K/mm3 (4.00-11.30)
[2021-10-28 05:41] LABS: International Normalized Ratio 1.21; Prothrombin Time Results 12.5 Sec (9.7-11.5)
[2021-10-28 05:59] LABS: Bun/Creatinine Ratio 15.7 (12.0-20.0); Calcium, Blood 8.7 mg/dL (8.5-10.1); Creatinine, Blood 1.21 mg/dL (0.60-1.20); Magnesium, Blood 1.7 mg/dL (1.6-2.4); Potassium, Blood 3.1 mmol/L (3.5-5.5)
--- NOTE | 2021-10-28 17:57 | NUR ---
SHIFT SUMMARY: NO ACUTE EVENTS. DENIED PAIN. NO EVENTS ON TELE, AFIB WITH RATE 60-70'S. FLAT AFFECT, BUT IS A LITTLE MORE AWAKE AND INTERACTIVE TODAY. WORKED WITH PHYSICAL THERAPY. IS REFUSING CPAP AT HS. SUPRAPUBIC CATHETER DRAINING ADEQUATE URINE. LUNGS SOUND CLEARER TODAY, COUGH HAS RESOLVED. IS HOPING TO GO HOME TOMORROW.
--- NOTE | 2021-10-29 04:31 | NUR ---
10/28/21 2120 PT LYING IN BED, DENIES ANY DISCOMFORT AT THIS TIME. PT DECLINES SCD'S. BS WAS 286. PT IS AAO X 2. NO APPARENT SIGNS OF DISTRESS. PT DENIES NEED FOR ANYTHING AT THIS TIME. CALL LIGHT IS IN REACH. 2330 PT LYING IN BED, EYES CLOSED, APPEARS TO BE RESTING. BREATHING IS EVEN, UNLABORED. NO APPARENT SIGNS OF DISTRESS. CALL LIGHT IS IN REACH. 10/29/21 0200 PT LYING IN BED, EYES CLOSED, APPEARS TO BE RESTING. BREATHING IS EVEN, UNLABORED. NO APPARENT SIGNS OF DISTRESS. CALL LIGHT IS IN REACH. 0400 PT LYING IN BED, EYES CLOSE, WAKES EASILY TO VERBAL STIMULI. NO APPARENT SIGNS OF DISTRESS. CALL LIGHT IS IN REACH.
--- NOTE | 2021-10-29 04:34 | NUR ---
PT IS AAO X 2, ON RA. PT DENIED DISCOMFORT FOR THIS SHIFT. BS WAS 286. PT DECLINES SCD'S. TELE AFIB.
[2021-10-29 06:17] LABS: International Normalized Ratio 1.4; Prothrombin Time Results 14.4 Sec (9.7-11.5)
--- NOTE | 2021-10-29 06:40 | NUR ---
PT LYING IN BED, EYES CLOSED, APPEARS TO BE RESTING. BREATHING IS EVEN, UNLABORED. NO APPARENT SIGNS OF DISTRESS. CALL LIGHT IS IN REACH. NO OTHER CHANGES THIS SHIFT.
--- NOTE | 2021-10-29 18:19 | NUR ---
SHIFT SUMMARY: NO ACUTE EVENTS. NO EVENTS ON TELE, AFIB 68-95 WITH OCC PVC'S. DENIED PAIN. MORE AWAKE AND ALERT TODAY. SUPRAPUBIC CATH DRAINING ADEQUATE URINE. APPETITE HAS IMPROVED. IS REFUSING CPAP AT HS. REFUSING SCD'S, IS ON COUMADIN. IS TRANSFERRING INDEPENDENTLY TO CHAIR, DECLINED TO WALK IN [place]. IS HOPING TO D/C HOME TOMORROW.
--- NOTE | 2021-10-30 05:19 | NUR ---
SHIFT SUMMARY: PT IS ALERT AND ORIENTED, SLOW TO RESPOND WITH FLAT AFFECT. PT IS CALM AND COOPERATIVE WITH CARE. PT CALLS APPROPRIATELY. PT IS A ONE PERSON ASSIST FOR TRANSFERS AND AMBULATION. PT DENIES PAIN, NAUSEA, VOMITING, AND SOB. SP CATH PATENT AND DRAINING YELLOW URINE. PT SLEPT MUCH OF THE NIGHT WHEN NOT DISTURBED. NO ACUTE CHANGES OR COMPLICATIONS THIS SHIFT. BED IN LOW POSITION, CALL LIGHT WITHIN REACH. WILL CONTINUE TO MONITOR.
[2021-10-30 05:58] LABS: BASOPHILS PERCENT AUTO 1 % (0-2); EOSINOPHILS ABSOLUTE AUTO 0.59 K/mm3 (0.00-0.68); EOSINOPHILS PERCENT AUTO 5 % (0-6); Hematocrit 46.4 % (37.0-53.0); Hemoglobin 15.7 g/dL (13.5-17.5); IMMATURE GRAN ABSOLUTE AUTO 0.15 K/mm3 (0.00-0.10); IMMATURE GRAN PERCENT AUTO 1 % (0-1); LYMPHOCYTES ABSOLUTE AUTO 3.48 K/mm3 (0.84-5.20); LYMPHOCYTES PERCENT AUTO 27 % (21-46); MONOCYTES ABSOLUTE AUTO 1.25 K/mm3 (0.16-1.47); MONOCYTES PERCENT AUTO 10 % (4-13); Mean Corpuscular HGB 30.4 pg (26.0-34.0); Mean Corpuscular HGB Conc 33.8 g/dL (31.5-36.5); Mean Corpuscular Volume 90 fL (80-100); Mean Platelet Volume 9.6 fL (9.1-12.4); NEUTROPHILS ABSOLUTE AUTO 7.57 K/mm3 (1.96-9.15); NEUTROPHILS PERCENT AUTO 58 % (41-73); Platelet Count 339 K/mm3 (150-400); RDW Coefficient Variation 13.8 % (11.7-14.2); RDW Standard Deviation 45.1 fL (35.1-46.3); Red Blood Cell Count 5.17 M/mm3 (4.30-5.90); White Blood Cell Count 13.14 K/mm3 (4.00-11.30)
[2021-10-30 06:18] LABS: International Normalized Ratio 1.71; Prothrombin Time Results 17.3 Sec (9.7-11.5)
[2021-10-30 06:24] LABS: Bun/Creatinine Ratio 13.9 (12.0-20.0); Creatinine, Blood 1.22 mg/dL (0.60-1.20); Potassium, Blood 3.2 mmol/L (3.5-5.5)
--- NOTE | 2021-10-30 15:14 | NUR ---
Visit made to pt today; he verbalizes his wish to remain at home. He does not want treatment for prostate cancer. I asked him if he would like to discuss hospice, and he states he would. I explained the basics, and he was very agreeable to this, as it means he would be able to have symptom management and care at home vs coming back to the hospital. He requested I call his as well, and I discussed hospice with both Diane and daughter Milagros. They are also on board, and state it sounds like exactly what Kai needs. Dr. Lugo is on board with this plan as well. Diane and Milagros both state they understand what hospice is, but not all of the benefits available, such as a bath aide, SP cath supplies, and a hospital bed. Pt and family state relief to have hospice available to them. Pt's chose [facility] hospice. Pt to d/c home today and be admitted to [facility] hospice tomorrow.
--- NOTE | 2021-10-30 17:56 | NUR ---
DC HOME WITH HOSPICE PT DC'D HOME WITH HOSPICE. PIV DC'D WITH CATH TIP INTACT. NO REDNESS OR SWELLING NOTED AT SITE. DC INSTRUCTIONS GIVEN TO PT WITH PT VERBALIZING GOOD UNERSTANDING. SHOWED PT & PT'S DAUGHTER HOW TO EMPTY URINE BAG. NO NEW MEDS FOR DC. PT HOME VIA W/C WITH ALL PERSONAL BELONGINGS. DTR IS RIDE HOME.
== END 2021-10-30 17:53 | disposition hospice, home (50) | DRG 208 ==
LOC: ER 14:44 → ICUW 16:55 → ICUE 16:55 → PCU 10-24 17:34 → MEDS 10-27 14:34
PROVIDERS: Internal Medicine; Internal Medicine Critical Care Medicine; Student in an Organized Health Care Education/Training Program; ADMIT Hospitalist
PROC: 5A1945Z Respiratory Ventilation, 24-96 Consecutive Hours (ICD-10-PCS; 2021-10-20)
PROC: 0T9B30Z Drainage of Bladder with Drainage Device, Percutaneous Approach (ICD-10-PCS; principal; 2021-10-24)
DX: J69.0 Pneumonitis due to inhalation of food and vomit (principal); G93.41 Metabolic encephalopathy; J96.01 Acute respiratory failure with hypoxia; I13.0 Hypertensive heart and chronic kidney disease with heart failure and stage 1 through stage 4 chronic kidney disease, or unspecified chronic kidney disease; N25.81 Secondary hyperparathyroidism of renal origin; I50.22 Chronic systolic (congestive) heart failure; N17.9 Acute kidney failure, unspecified; E87.0 Hyperosmolality and hypernatremia; I48.92 Unspecified atrial flutter; I25.10 Atherosclerotic heart disease of native coronary artery without angina pectoris; R33.9 Retention of urine, unspecified; M54.50 Low back pain, unspecified; I71.4 Abdominal aortic aneurysm, without rupture; N32.0 Bladder-neck obstruction; E87.6 Hypokalemia; Z20.822 Contact with and (suspected) exposure to COVID-19; G89.29 Other chronic pain; G47.33 Obstructive sleep apnea (adult) (pediatric); E11.22 Type 2 diabetes mellitus with diabetic chronic kidney disease; E11.65 Type 2 diabetes mellitus with hyperglycemia; N18.30 Chronic kidney disease, stage 3 unspecified; E66.01 Morbid (severe) obesity due to excess calories; E78.5 Hyperlipidemia, unspecified; I48.0 Paroxysmal atrial fibrillation; K76.0 Fatty (change of) liver, not elsewhere classified; M54.16 Radiculopathy, lumbar region; Z85.3 Personal history of malignant neoplasm of breast; Z87.440 Personal history of urinary (tract) infections; Z87.19 Personal history of other diseases of the digestive system; I25.2 Old myocardial infarction; Z85.46 Personal history of malignant neoplasm of prostate; Z85.51 Personal history of malignant neoplasm of bladder; Z95.5 Presence of coronary angioplasty implant and graft; Z98.890 Other specified postprocedural states; Z88.7 Allergy status to serum and vaccine; Z88.6 Allergy status to analgesic agent; Z88.8 Allergy status to other drugs, medicaments and biological substances; Z79.4 Long term (current) use of insulin; Z79.02 Long term (current) use of antithrombotics/antiplatelets; Z79.899 Other long term (current) drug therapy
CPT/HCPCS: 0241U; 36415; 36600; 51102; 51702; 51703; 70450; 71045; 72125; 76770; 76937; 80048; 80053; 80076; 81001; 82010; 82330; 82803; 82947; 83605; 83690; 83735; 84100; 84132; 84153; 84443; 84484; 85025; 85610; 85730; 87040; 87070; 87086; 87205; 93005; 93010; 94002; 94003; 94640; 94664; 94760; 94762; 96365-59; 97110; 97116; 97162; 97166; 97530; 97535; 99152; 99153; 99291-25; A9270; C1729; C1751; C1769; C1894; C9113; J0610; J1644; J1815; J1940; J2250; J2405; J2543; J2704; J3010; J3475; J3480; J7030; J7040; J7050; Q9967

== ENCOUNTER 2021-11-04 22:52 | Emergency (ER) | payer MEDICARE ==
[~2021-11-04] VITALS: Ht 182.9 cm; Wt 127.5 kg
[~2021-11-04 22:52] MED LIST changes: +AMLO5 PO; +POTCHL20ER PO; +WARF2.5 PO
== END 2021-11-05 00:06 | disposition home or self-care (01) ==
LOC: ER 22:52
DX: Z46.6 Encounter for fitting and adjustment of urinary device (principal); I12.9 Hypertensive chronic kidney disease with stage 1 through stage 4 chronic kidney disease, or unspecified chronic kidney disease; N18.30 Chronic kidney disease, stage 3 unspecified; E11.22 Type 2 diabetes mellitus with diabetic chronic kidney disease; I25.2 Old myocardial infarction; I25.10 Atherosclerotic heart disease of native coronary artery without angina pectoris; F17.210 Nicotine dependence, cigarettes, uncomplicated; Z88.8 Allergy status to other drugs, medicaments and biological substances; Z91.048 Other nonmedicinal substance allergy status; Z88.7 Allergy status to serum and vaccine; Z88.5 Allergy status to narcotic agent; Z79.4 Long term (current) use of insulin; Z79.01 Long term (current) use of anticoagulants
CPT/HCPCS: 99283

== ENCOUNTER 2021-12-07 11:53 | Emergency (ER) | payer MEDICARE ==
[~2021-12-07] VITALS: Ht 182.9 cm; Wt 118.4 kg
[2021-12-07 15:47] LABS: International Normalized Ratio 1.53; Prothrombin Time Results 15.6 Sec (9.7-11.5)
== END 2021-12-07 14:49 | disposition other institution (70) ==
LOC: ER 11:53
PROVIDERS: Radiology Diagnostic Radiology
DX: T83.020A Displacement of cystostomy catheter, initial encounter (principal); I25.2 Old myocardial infarction; I12.9 Hypertensive chronic kidney disease with stage 1 through stage 4 chronic kidney disease, or unspecified chronic kidney disease; E11.22 Type 2 diabetes mellitus with diabetic chronic kidney disease; N18.30 Chronic kidney disease, stage 3 unspecified; F17.200 Nicotine dependence, unspecified, uncomplicated; Z88.5 Allergy status to narcotic agent; Z88.7 Allergy status to serum and vaccine; Z88.8 Allergy status to other drugs, medicaments and biological substances; Z91.041 Radiographic dye allergy status; Z79.01 Long term (current) use of anticoagulants; Z79.4 Long term (current) use of insulin; Z79.899 Other long term (current) drug therapy; Z95.1 Presence of aortocoronary bypass graft; Z95.5 Presence of coronary angioplasty implant and graft
CPT/HCPCS: 76937; 82947; 85610; 99152; 99153; 99284; C1729; C1769; Q9967

== ENCOUNTER 2022-02-05 10:52 | Day surgery (SDC) | payer MEDICARE ==
[~2022-02-05] VITALS: Ht 182.9 cm; Wt 119.0 kg
[~2022-02-05 10:52] MED LIST changes: +SULTRIDS PO
--- NOTE | 2022-02-05 14:35 | NUR ---
PT RETURNED TO RECOVERY ROOM IN BED. RIGHT-SIDE SUPRAPUBIC DRAIN SITE SOFT NON-TENDER WITH NO BLEEDING AND INTACT DRESSING WITH DRAINAGE TUBE TO GRAVITY BAG WITH PINK-TINGED URINE NOTED. PT SITTING ON BEDSIDE EATING LUNCH.
--- NOTE | 2022-02-05 15:38 | NUR ---
PT'S DAUGHTER ARRIVED, PT DRESSED, ATE LUNCH, DC'D BY WC, DAUGHTER DRIVING PT HOME
== END 2022-02-05 15:24 | disposition home or self-care (01) ==
LOC: MHTC 10:52
DX: Z46.6 Encounter for fitting and adjustment of urinary device (principal); N13.9 Obstructive and reflux uropathy, unspecified; I10 Essential (primary) hypertension; E11.9 Type 2 diabetes mellitus without complications; F17.210 Nicotine dependence, cigarettes, uncomplicated; Z93.59 Other cystostomy status; Z88.5 Allergy status to narcotic agent; Z88.7 Allergy status to serum and vaccine; Z91.02 Food additives allergy status; Z79.4 Long term (current) use of insulin
CPT/HCPCS: C1729; C1769; J7050; Q9967

== ENCOUNTER 2022-04-16 09:43 | Emergency (ER) | payer MEDICARE ==
[~2022-04-16] VITALS: Ht 165.1 cm; Wt 74.8 kg
== END 2022-04-16 13:48 | disposition home or self-care (01) ==
LOC: ER 09:43
DX: T83.020A Displacement of cystostomy catheter, initial encounter (principal); Y73.8 Miscellaneous gastroenterology and urology devices associated with adverse incidents, not elsewhere classified; I12.9 Hypertensive chronic kidney disease with stage 1 through stage 4 chronic kidney disease, or unspecified chronic kidney disease; E11.22 Type 2 diabetes mellitus with diabetic chronic kidney disease; N18.30 Chronic kidney disease, stage 3 unspecified; I25.10 Atherosclerotic heart disease of native coronary artery without angina pectoris; E78.00 Pure hypercholesterolemia, unspecified; C61 Malignant neoplasm of prostate; F17.200 Nicotine dependence, unspecified, uncomplicated; Z88.5 Allergy status to narcotic agent; Z88.7 Allergy status to serum and vaccine; Z88.8 Allergy status to other drugs, medicaments and biological substances; Z91.048 Other nonmedicinal substance allergy status; Z79.899 Other long term (current) drug therapy; Z79.01 Long term (current) use of anticoagulants; Z79.4 Long term (current) use of insulin
CPT/HCPCS: 51102; 99283-25; C2627